=== PATIENT | male | born 1945 | race Caucasian/White ===

== ENCOUNTER 2020-10-13 08:33 | Outpatient (CLI) | payer MEDICARE, SELFPAY ==
[2020-10-13 09:47] LABS: Cholesterol 126 mg/dL (0-200); HDL Direct 53 mg/dL; Triglycerides 139 mg/dL (<150)
[2020-10-13 09:58] LABS: LDL Cholesterol Direct 51 mg/dL
== END 2020-10-13 08:34 | disposition home or self-care (01) ==
PROVIDERS: PCP Family Medicine; Visit Provider Internal Medicine Cardiovascular Disease
DX: E78.5 Hyperlipidemia, unspecified (principal)
CPT/HCPCS: 36415; 80061

== ENCOUNTER → 2021-03-13 08:10 | Outpatient (CLI) | payer MEDICARE, SELFPAY ==
--- NOTE | ~2021-03-13 | CT_ITS ---
EXAMINATION: CT abdomen pelvis w con INDICATION: Abdominal distention TECHNIQUE: Computed tomographic images of the abdomen and pelvis were obtained after the administrati on of 100 cc of Omnipaque 350 intravenous contrast. The dose-length product (DLP) was 979.37 mGy-cm. Automated exposure control and iterative reconstruction technique were employed. COMPARISON: None available FINDINGS: There is 11 mm nodule of the right middle lobe on image 6. There is a 5 mm nodule of the le ft lower lobe. There appears to be a lymph node in the major fissure on the right. Calcified coronary artery atherosclerosis is noted. The heart size is normal. The spleen, pancreas, gallbladder, and ad renal glands are normal. The kidneys are unremarkable. There is calcified atherosclerosis of the aort a and many of the other arteries. No pathologically enlarged abdominal or pelvic lymph nodes are iden tified. There is no free intraperitoneal gas or evidence of bowel obstruction. The prostate is enlarg ed. There is severe lumbar spondylosis. A fat-containing umbilical hernia is noted. Colonic diverticu losis is present without evidence of diverticulitis. IMPRESSION: 1. No CT correlate for the patient's symptoms. 2. Nodules of the visualized lung bases measuring up to 11 mm which may be benign or malignant. Dedic ated CT of the chest is recommended. Reviewed, dictated and finalized at location A. IMPRESSION: 1. No CT correlate for the patient's symptoms. 2. Nodules of the visualized lung bases measuring up to 11 mm which may be dipika gn or malignant. Dedicated CT of the chest is recommended.
[2021-03-13 08:30] LABS: Estimated Glomerular Filt Rate > 60
== END ==
PROVIDERS: PCP Family Medicine; Visit Provider Family Medicine
DX: K31.89 Other diseases of stomach and duodenum (principal)
CPT/HCPCS: 74177; Q9967

== ENCOUNTER → 2021-03-28 14:42 | Outpatient (CLI) | payer MEDICARE, SELFPAY ==
--- NOTE | ~2021-03-28 | CT_ITS ---
EXAMINATION: CT diagnostic chest wo con DATE: 03/28/2021 15:08 INDICATION: Lung nodules TECHNIQUE: Computed tomography (CT) of the chest was performed without intravenous contrast. The dose -length product (DLP) was 562.32 mGy-cm. Automated exposure control and iterative reconstruction tech [employer] were employed. COMPARISON: 03/13/2021 FINDINGS: There is a stable 11 mm nodule in the right middle lobe on image 65. A stable 5 mm nodule i s present in the left lower lobe on image 84. A fissural lymph node is seen in the right major fissur e on image 61. The lungs are free of acute opacities. There is no pleural effusion or pneumothorax. M ild bronchiectasis is noted in the lower lobes. No pathologically enlarged thoracic lymph nodes are i dentified. The heart size is normal. There is calcified coronary artery atherosclerosis. There are br idging osteophytes at multiple levels in the spine, consistent with diffuse idiopathic skeletal hyper ostosis (DISH). IMPRESSION: 1. Stable pulmonary nodules as described above. In the absence of known malignancy, these could refle ct infection/inflammation. Follow-up CT in 3-6 months is recommended. Reviewed, dictated and finalized at location A. IMPRESSION: 1. Stable pulmonary nodules as described above. In the absence of known maligna ncy, these could reflect infection/inflammation. Follow-up CT in 3-6 months is recommended.
== END ==
PROVIDERS: PCP Family Medicine; Visit Provider Family Medicine
DX: R93.89 Abnormal findings on diagnostic imaging of other specified body structures (principal); R91.8 Other nonspecific abnormal finding of lung field
CPT/HCPCS: 71250

== ENCOUNTER 2021-09-13 08:30 | Outpatient (CLI) | payer MEDICARE, SELFPAY ==
--- NOTE | ~2021-09-13 | NM_ITS ---
EXAMINATION: NM parathyroid w imaging DATE: 09/13/2021 14:42 INDICATION: Vitamin D deficiency. TECHNIQUE: 19.2 mCi Tc99m sestamibi was administered intravenously. Anterior images of the neck were obtained immediately and at 2 hours. SPECT images of the neck were obtained. COMPARISON: Chest CT 03/28/2021 FINDINGS: There is focal increased activity in the superior mediastinum at the midline on the early i mages that does not persist. There is mildly increased activity in the area of inferior right thyroid lobe on delayed images. IMPRESSION: 1. Focal increased activity in the superior mediastinum at the midline on early images correlating wi th a 6 mm mass abutting the left brachiocephalic vein by CT. This finding is indeterminate for a para thyroid adenoma. 2. Mildly increased activity in the area of the inferior right thyroid lobe on delayed images, which is indeterminate for a parathyroid adenoma. Reviewed, dictated and finalized at location A. IMPRESSION: 1. Focal increased activity in the superior mediastinum at the midline on early images correlating with a 6 mm mass abutting the left brachiocephalic vein by CT. This finding is indeterminate for a parathyroid adenoma. 2. Mildly increased activity in the area of the inferior right thyroid lobe on delayed images, which is indeterminate for a parathyroid adenoma.
== END 2021-09-13 08:31 | disposition home or self-care (01) ==
PROVIDERS: PCP Family Medicine; Visit Provider Family Medicine
DX: E55.9 Vitamin D deficiency, unspecified (principal); R93.89 Abnormal findings on diagnostic imaging of other specified body structures
CPT/HCPCS: 78070; A9500

== ENCOUNTER → 2021-10-17 12:16 | Outpatient (CLI) | payer MEDICARE, SELFPAY ==
--- NOTE | ~2021-10-17 | DEXA_ITS ---
Bone Density Report Name: MELVI ALFRED Age: 76 Sex: Male Ethnicity: White Date of : 1945 Indication: hyperparathyroidism; height loss; Referring Provider: JAREK, SUNIL Study: Bone densitometry was performed. Exam Date: October 17, 2021 Accession number: [id number] Bone Density: Region BMD T-score Z-score Classification AP Spine (L1-L4) 1.320 2.1 3.1 Normal Femoral Neck (Left) 0.851 -0.6 0.8 Normal Total Hip (Left) 1.105 0.5 1.3 Normal Femoral Neck (Right) 0.848 -0.6 0.7 Normal Total Hip (Right) 1.051 0.1 0.9 Normal Total Hip Mean 1.078 0.3 1.1 Normal World Health Organization criteria for BMD impression classify patients as: Normal (T-score at or above -1.0), Osteopenia (T-score between -1.0 and -2.5), or Osteoporosis (T-score at or below -2.5). 10-year Fracture Risk: FRAX not reported because: All T-scores for Spine Total, Hip Total, Femoral Neck at or above -1.0 Clinical Information Provided by Patient: Has used the following medications: Vitamin D Has the following medical conditions: Hyperparathyroidism Patient maximum height was 68 Drinks caffeinated beverages Impression: The patient has normal bone mass. Discussion: BONE DENSITY IS ABOVE THE MINIMUM DESIRABLE LEVEL AT ALL SKELETAL SITES TESTED. This patient?s bone mineral density is above the minimum desirable level (T-score -1.0 or better) at all sites measured. The patient should follow a healthful lifestyle (good nutrition with adequate calcium and vitamin D, and appropriate weight-bearing exercise). Follow-Up: Consider repeating this study in 5 years or sooner if there is some new clinical indication. Reported by: LINN on 10/17/2021 1:12:00 PM. Reviewed, dictated and finalized at location ABerry BOTELLO
== END ==
PROVIDERS: PCP Family Medicine; Visit Provider Family Medicine
DX: E21.3 Hyperparathyroidism, unspecified (principal)
CPT/HCPCS: 77080

== ENCOUNTER 2022-12-26 15:13 | Inpatient (IN) | payer MEDICARE, SELFPAY ==
[2022-12-26] VITALS (20 sets, daily range): BP systolic 151–178; BP diastolic 69–87; PULSE 37–64; RESP 13–18; TEMP 36–36.4; O2SAT 92–100; BMI 31.0
--- NOTE | ~2022-12-26 | XR_ITS ---
EXAMINATION: XR chest 1V portable DATE: 12/26/2022 15:36 INDICATION: Asymptomatic complete AV block TECHNIQUE: frontal view of the chest was obtained. COMPARISON: Chest CT dated 03/28/2021 FINDINGS: Patient is rotated slightly towards the left. The lungs remain clear with no focal airspace opacities , pulmonary edema, pleural effusion or pneumothorax. The cardiomediastinal silhouette is normal. Visu alized bones and soft tissues are unremarkable. IMPRESSION: 1. No acute cardiopulmonary disease. Reviewed, dictated and finalized at location A.
--- NOTE | ~2022-12-26 | XR_ITS ---
EXAMINATION: XR chest 2V DATE: 12/30/2022 09:54 INDICATION: Pacemaker insertion TECHNIQUE: AP and lateral views of the chest are obtained. COMPARISON: 12/29/2022 FINDINGS: The lungs are free of acute opacities. No pleural effusion or pneumothorax. The cardiomedia stinal silhouette is normal. There are bridging osteophytes at multiple levels in the spine, consiste nt with diffuse idiopathic skeletal hyperostosis (DISH). A dual-lead cardiac pacemaker of the right c hest wall ends with leads in expected locations. IMPRESSION: 1. No acute cardiopulmonary abnormality. Reviewed, dictated and finalized at location A.
--- NOTE | ~2022-12-26 | XR_ITS ---
EXAMINATION: XR chest 1V portable DATE: 12/29/2022 12:26 INDICATION: Pacer placement. TECHNIQUE: A single frontal view of the chest was obtained. COMPARISON: Chest single view 12/26/22, chest CT 03/28/2021 FINDINGS: There is mild atelectasis versus scarring in left lower lung zone. No pleural effusion or p neumothorax. The heart size is normal. There is a right chest wall pacer with leads in the right atri um and right ventricle. IMPRESSION: 1. Mild atelectasis versus scarring in left lower lung zone. Reviewed, dictated and finalized at location A.
--- NOTE | 2022-12-26 15:15 | ECG_ITS ---
Measurements Intervals [place] Rate: 58 P: [place]: 0 QRS: -43 QRSD: 158 T: 11 QT: 431 QTc: 426 Interpretive Statements SINUS RHYTHM WITH SECOND-DEGREE AV BLOCK MOBITZ TYPE 1 LEFT AXIS DEVIATION [QRS AXIS < -30] RIGHT BUNDLE BRANCH BLOCK [120+ ms QRS DURATION, UPRIGHT V1, 40+ ms S IN I/aVL/V4/V5/V6] ABNORMAL ECG NO PREVIOUS ECG AVAILABLE FOR COMPARISON Electronically Signed On 12-26-2022 17:23:43 CDT by Hari Oro M.D.
--- NOTE | 2022-12-26 15:25 | ED.RECABL ---
HPI - Recheck/Abnormal Lab/Rx General Chief Complaint: Recheck/Abnormal Lab/Rx Stated Complaint: heart block Time Seen by Provider: 12/26/22 15:24 Source: patient Mode of arrival: ambulatory Limitations: no limitations History of Present Illness HPI narrative: Patient 77 years old white male went to Dr. Broderick today for routine checkup. Was found to have complete heart block on his EKG. Patient is asymptomatic. He denies any shortness of breath, chest pain, lightheadedness, headache, back pain or abdominal pain, fever or chills nausea or vomiting. Patient is not on beta-kita or calcium channel kita. History of sick sinus syndrome, patient was referred to our emergency room for blood work-up and admission for possible pacemaker placement. Currently patient feeling anxious and worried Related Data Allergies Allergy/AdvReac Type Severity Reaction Status Date / Time No Known Allergies Allergy Verified 12/26/22 17:02 Review of Systems Review of Systems: All systems reviewed & are unremarkable except as noted in HPI and below Exam Narrative: General appearance: Well-developed, well-nourished Skin: Normal color Head: Normocephalic, nontraumatic Eyes: Clear conjunctiva ENT: Oropharynx normal, ears normal, nose normal Neck: Supple, nontender Chest and respiratory: Airway patent, no respiratory distress, no accessory muscle use Heart: Irregular heart rate Abdomen: Soft, nontender, no organomegaly, quiet bowel sounds Vascular: Normal peripheral pulses, normal capillary refill. Musculoskeletal: Normal range of motion, nontender back Neurologic: Alert and oriented ?3, [employer] is normal as tested, no gross motor deficit Course Reevaluation(s) Reevaluation #1: Patient is still asymptomatic, feeling much better after Ativan IV less anxious. Date: 12/26/22 Time: 17:33 Consultations Consultation #1: Dr. Broderick Admit to hospitalist Date: 12/26/22 Time: 14:10 Vital Signs Vital signs: Vital Signs Temperature 36.4 C L 12/26/22 15:19 Pulse Rate 64 12/26/22 15:19 Respiratory Rate 15 12/26/22 15:19 Blood Pressure 178/86 H 12/26/22 15:19 Pulse Oximetry 100 12/26/22 15:19 Oxygen Delivery Room Air 12/26/22 15:19 Temperature 36.4 C L 12/26/22 15:19 Pulse Rate 64 12/26/22 15:19 Respiratory Rate 15 12/26/22 15:19 Blood Pressure 178/86 H 12/26/22 15:19 Pulse Oximetry 100 12/26/22 15:19 Oxygen Delivery Room Air 12/26/22 15:19 MDM - Recheck/Abnormal Lab/Rx MDM Narrative Medical decision making narrative: Patient referred to the emergency room with by Dr. Fuchs office with complete heart block. Patient was asymptomatic. Patient is not on beta-kita or calcium channel kita medications Work-up today showed no significant abnormality to explain patient condition. EKG on arrival showed complete heart block, ventricular rate 58/min, left axis deviation, right bundle branch block, abnormal EKG chest x-ray on arrival showed no acute abnormalities. Patient was very anxious and concerned about the abnormal finding in his EKG, 1 mg Ativan IV was given with remarkable improvement. Patient to be admitted to hospitalist, IMU for pacemaker placement. Differential Diagnosis Differential diagnosis: Likely other (Complete heart block, ischemic cardiac disease, electrolyte imbalance, medication induced) Medical Records Attestation: I reviewed the patient's medical records. Lab Data Attestation: I reviewed the patient's lab results. 12/26/22 15:21 12/26/22 15:21 Labs: Lab Results 12/26/22 Range/Units 15:21 WBC 10.0 (4.5-10.0) K/mm3 RBC 5.24 (4.6-6.20) M/mm3 Hgb 16.3 (14.0-1
[2022-12-26 15:29] LABS: Basophils Absolute Auto 0.1 K/mm3 (0.0-0.1); Basophils Percent Auto 1.2 % (0.2-1.2); Eosinophils Absolute Auto 0.4 K/mm3 (0-0.3); Eosinophils Percent Auto 3.5 % (0-4.4); Hematocrit 47.3 % (42.0-52.0); Hemoglobin 16.3 g/dL (14.0-18.0); Immature Granulocyte Absolute 0.03 K/mm3 (0.00-0.031); Immature Granulocyte Percent A 0.3 % (0-0.5); Lymphocytes Absolute Auto 2.89 K/mm3 (0.9-3.2); Mean Corpuscular HGB Conc 34.5 g/dl (32-36); Mean Corpuscular Hemoglobin 31.1 pg (26-34); Mean Corpuscular Volume 90.3 fl (80-100); Mean Platelet Volume 9.8 fl (7.4-10.4); Monocytes Absolute Auto 1.2 K/mm3 (0.1-0.6); Monocytes Percent Auto 11.5 % (2.6-8.5); Neutrophils Absolute Auto 5.4 K/mm3 (1.3-6.7); Neutrophils Percent Auto 54.5 % (45.5-73.1); Platelet Count Result 276 k/mm3 (150-375); Red Blood Count 5.24 M/mm3 (4.6-6.20); Red Cell Distribution Width 13.5 % (11.5-14.5)
[2022-12-26] MEDS: Please add drug allergy info to patient profile. 1 EACH XX (15:34)
[2022-12-26] MEDS: ASPIRIN 81 MG CHEWABLE TABLET 324 MG PO (15:35)
[2022-12-26 15:40] LABS: Alanine Aminotransferase 104 U/L (6-50); Albumin Level 4.8 g/dL (3.5-5.1); Alkaline Phosphatase 47 U/L (38-126); Anion Gap 9 mmol/L (8-16); Aspartate Amino Transferase 62 U/L (17-59); Bilirubin,Total 0.4 mg/dL (0.2-1.3); Blood Urea Nitrogen 17 mg/dL (9-20); Calcium 10.7 mg/dL (8.4-10.2); Carbon Dioxide 27 mmol/L (22-30); Chloride 108 mmol/L (98-107); Estimated CRCL calculation 69 ml/min; Estimated Glomerular Filt Rate > 60; Glucose 123 mg/dL (65-110); Lipase 182 U/L (23-300); Potassium 3.6 mmol/L (3.4-5.0); Sodium 144 mmol/L (137-145)
[2022-12-26 15:52] LABS: Prothrombin Time 13.3 Seconds (11.1-14.7); Troponin I < 0.012 ng/mL (0.000-0.034)
[2022-12-26 15:53] LABS: Partial Thromboplastin Time 26.1 SECONDS (22.3-36.8)
[2022-12-26 16:36] LABS: NT Pro B Type Natriuretic Pept 101 pg/mL (19.9-100)
--- NOTE | 2022-12-26 16:50 | ECG_ITS ---
Measurements Intervals [place] Rate: 48 P: [place]: 0 QRS: -34 QRSD: 153 T: 9 QT: 473 QTc: 427 Interpretive Statements SINUS RHYTHM WITH COMPLETE HEART BLOCK JUNCTIONAL ESCAPE RHYTHM LEFT AXIS DEVIATION [QRS AXIS < -30] RIGHT BUNDLE BRANCH BLOCK [120+ ms QRS DURATION, UPRIGHT V1, 40+ ms S IN I/aVL/V4/V5/V6] ABNORMAL ECG COMPARED TO ECG 12/26/2022 15:21:39 COMPLETE HEART BLOCK IS NOW DEMONSTRATED Electronically Signed On 12-26-2022 17:26:28 CDT by Hari Oro M.D.
--- NOTE | 2022-12-26 17:03 | PC.NURSE ---
patient is requesting his IV be removed at this time for comfort issues. This nurse explained that IV can be removed but another IV will likely have to be started d/t probable admission to hospital. Patient is agreeable at this time.
--- NOTE | 2022-12-26 18:06 | PM.IMHP ---
H&P: HPI History of Present Illness Date/Time: 12/26/22 18:06 Meds Home Medications and Allergies Allergies Allergy/AdvReac Type Severity Reaction Status Date / Time No Known Allergies Allergy Verified 12/26/22 17:02 Vital Signs Vital Signs - 24 hr 12/26/22 15:19 12/26/22 15:22 12/26/22 15:30 Temperature 36.4 C L Pulse Rate 64 62 Respiratory Rate 15 15 Blood Pressure 178/86 H Pulse Oximetry 100 100 99 Oxygen Delivery Room Air 12/26/22 15:31 12/26/22 15:45 12/26/22 15:46 Temperature Pulse Rate 52 L 51 L Respiratory Rate 16 15 Blood Pressure 171/77 H 162/69 H Pulse Oximetry 99 99 99 Oxygen Delivery 12/26/22 16:09 12/26/22 16:15 12/26/22 16:38 Temperature Pulse Rate 46 L 43 L 45 L Respiratory Rate 14 13 14 Blood Pressure Pulse Oximetry 100 98 97 Oxygen Delivery 12/26/22 16:50 12/26/22 17:00 12/26/22 17:15 Temperature Pulse Rate 48 L 46 L 47 L Respiratory Rate 18 Blood Pressure Pulse Oximetry 98 100 100 Oxygen Delivery 12/26/22 17:16 12/26/22 17:30 12/26/22 17:45 Temperature Pulse Rate 46 L 45 L 44 L Respiratory Rate Blood Pressure 151/75 H Pulse Oximetry 100 99 100 Oxygen Delivery H&P: Results Labs Labs: Short CBC 12/26/22 Range/Units 15:21 WBC 10.0 (4.5-10.0) K/mm3 Hgb 16.3 (14.0-18.0) g/dL Hct 47.3 (42.0-52.0) % Plt Count 276 (150-375) k/mm3 BMP 12/26/22 15:21 Sodium 144 Potassium 3.6 Chloride 108 H Carbon Dioxide 27 BUN 17 Creatinine 0.90 Glucose 123 H Calcium 10.7 H Cardiac Enzymes 12/26/22 Range/Units 15:21 Troponin I < 0.012 (0.000-0.034) ng/mL Liver Function 12/26/22 Range/Units 15:21 Total Bilirubin 0.4 (0.2-1.3) mg/dL AST 62 H (17-59) U/L ALT 104 H (6-50) U/L Alkaline Phosphatase 47 (38-126) U/L Albumin 4.8 (3.5-5.1) g/dL
--- NOTE | 2022-12-26 18:30 | ADMGEN ---
This patient, Gaston Pat, was admitted to IMU Room 200-01 on 12/26/22 at 1820. Patient/family oriented to hospital policies and general routines including ID bracelet, bed and alarms, visiting hours, pain management, procedures, bathroom and other care routines, personal items, smoking policy, room service/diet, and visiting hours. Information on how to activate the Rapid Response Team has been discussed. Patient/Family are encouraged to report perceived risks to care and to ask questions if they do not understand what they are told or what they should do.
[2022-12-26 19:27] LABS: Troponin I < 0.012 ng/mL (0.000-0.034)
[2022-12-26] MEDS: AMOXICILLIN 500 MG CAPSULE PO (20:30)
[2022-12-26 21:39] LABS: Troponin I < 0.012 ng/mL (0.000-0.034)
--- NOTE | 2022-12-26 23:45 | PM.IMHP ---
H&P: HPI History of Present Illness Date/Time: 12/26/22 23:45 Chief Complaint: Abnormal EKG Narrative: This is a 77-year-old male patient who went into Dr. Broderick office for routine checkup. The patient was found to have a complete heart block on the EKG. The patient is asymptomatic. The patient denies any chest pain or any fever chills. The patient is not on a beta-kita calcium channel kita. The patient had as a history of sick sinus syndrome and was referred to our emergency room for blood workup and admission for possible pacemaker placement. The is at the bedside the patient is anxious and worried. The patient has brought a whole bag of medications including all of his supplemental medications. The patient stated that he takes holistic medication from his chiropractor and that Cardiology is aware of his medications. The patient stated he is going to continue to take all of his medication as prescribed per his chiropractor. His blood pressure is 121/53 and a pulse rate of 43. The patient is asymptomatic he is awake and talking without difficulty. EKG was read as the followingSINUS RHYTHM WITH COMPLETE HEART BLOCK JUNCTIONAL ESCAPE RHYTHM LEFT AXIS DEVIATION? [QRS AXIS < -30] RIGHT BUNDLE BRANCH BLOCK? [120+ ms QRS DURATION, UPRIGHT V1, 40+ ms S IN I/aVL/V4/V5/V6] ABNORMAL ECG COMPARED TO ECG 12/26/2022 15:21:39 COMPLETE HEART BLOCK IS NOW DEMONSTRATED Electronically Signed On 12-26-2022 17:26:28 CDT by Hari Oro M.D. The patient was given an aspirin and Ativan in the emergency room. Troponins are negative x3. Blood sugars 123 and calcium is 10.7. The patient is being admitted to inpatient status on the date of service of 12/26/2022 Review of Systems Review of Systems: All systems reviewed & are unremarkable except as noted in HPI and below Constitutional: Constitutional: Reports as per HPI and Reports no additional constitutional complaints Eyes: Eyes: Reports as per HPI and Reports no additional eye complaints ENT: Reports system reviewed and no additional complaints, except as documented and Reports Normal hearing present Cardiovascular: Cardiovascular: Reports no additional cardiovascular complaints Respiratory: Respiratory: Reports no additional respiratory complaints and Reports no additional respiratory complaints Gastrointestinal: Gastrointestinal: Reports as per HPI and Reports no additional gastrointestinal complaints Musculoskeletal: Musculoskeletal: Reports no additional musculoskeletal complaints Integumentary/Breasts: Skin/Breast: Reports system reviewed and no additional complaints, except as docu and Reports as per HPI Neurologic: Reports system reviewed and no additional complaints, except as documented, Reports as per HPI and Reports Normal hearing present Psychiatric: Psychiatric: Reports no additional psychiatric complaints and Reports as per HPI Endocrine: Endocrine: Reports no additional endocrine complaints Hematologic/Lymphatic: Hematologic/Lymphatic: Reports no additional hematologic/lymphatic complaints Allergic/Immunologic: Allergic/Immunologic: Reports no additional allergic/immunologic complaints [facility] Past Medical History Medical History (Updated 12/27/22 @ 02:05 by Rosetta Eastman NP) BPH (benign prostatic hyperplasia) CAD (coronary artery disease) Hyperlipidemia Hypertension Macular degeneration Surgical History Surgical History (Updated 12/27/22 @ 01:55 by Rosetta Eastman NP) History of cardiac catheterization History of colonoscopy History of tonsillectomy and adenoidectomy Family History Family History Father DVT (deep venous thrombosis) Mother CKD (chronic kidney disease) Cerebrovascular accident Lung cancer Sibling Acute myocardial infarction Social History Social History (Updated 12/27/22 @ 01:57 by Rosetta Eastman NP) Social History: The patient is and lives with
[2022-12-27] VITALS (17 sets, daily range): BP systolic 121–158; BP diastolic 53–79; PULSE 34–68; RESP 16–24; TEMP 36.1–36.7; O2SAT 92–99
[2022-12-27 04:19] LABS: Basophils Absolute Auto 0.1 K/mm3 (0.0-0.1); Basophils Percent Auto 0.9 % (0.2-1.2); Eosinophils Absolute Auto 0.4 K/mm3 (0-0.3); Eosinophils Percent Auto 4.8 % (0-4.4); Hematocrit 43.9 % (42.0-52.0); Hemoglobin 14.6 g/dL (14.0-18.0); Immature Granulocyte Absolute 0.02 K/mm3 (0.00-0.031); Immature Granulocyte Percent A 0.3 % (0-0.5); Lymphocytes Absolute Auto 1.69 K/mm3 (0.9-3.2); Lymphocytes Percent Auto 21.6 % (18.3-44.2); Mean Corpuscular HGB Conc 33.3 g/dl (32-36); Mean Corpuscular Hemoglobin 30.2 pg (26-34); Mean Corpuscular Volume 90.7 fl (80-100); Mean Platelet Volume 10.4 fl (7.4-10.4); Monocytes Absolute Auto 0.9 K/mm3 (0.1-0.6); Monocytes Percent Auto 11.1 % (2.6-8.5); Neutrophils Absolute Auto 4.8 K/mm3 (1.3-6.7); Neutrophils Percent Auto 61.3 % (45.5-73.1); Platelet Count Result 237 k/mm3 (150-375); Red Blood Count 4.84 M/mm3 (4.6-6.20); Red Cell Distribution Width 13.2 % (11.5-14.5); White Blood Count 7.8 K/mm3 (4.5-10.0)
[2022-12-27 04:28] LABS: Alanine Aminotransferase 81 U/L (6-50); Albumin Level 3.9 g/dL (3.5-5.1); Alkaline Phosphatase 44 U/L (38-126); Anion Gap 8 mmol/L (8-16); Aspartate Amino Transferase 50 U/L (17-59); Bilirubin,Total 0.4 mg/dL (0.2-1.3); Blood Urea Nitrogen 16 mg/dL (9-20); Calcium 9.8 mg/dL (8.4-10.2); Carbon Dioxide 23 mmol/L (22-30); Chloride 112 mmol/L (98-107); Estimated CRCL calculation 76 ml/min; Estimated Glomerular Filt Rate > 60; Glucose 115 mg/dL (65-110); Magnesium 2.1 mg/dL (1.6-2.3); Potassium 3.4 mmol/L (3.4-5.0); Sodium 143 mmol/L (137-145)
--- NOTE | 2022-12-27 05:20 | PHAR ---
VERIFIED ALL HOME SUPPLEMENTS. BERBERINE- EMPTY. BOTTLE SENT BACK UP. 11 SUPPLEMENTS IN TOTAL.
[2022-12-27] MEDS: AMOXICILLIN 500 MG CAPSULE PO ×3 (06:13→21:04)
[2022-12-27 06:18] LABS: Free T4 Free Thyroxine Reflex 0.93 ng/dL (0.78-2.19)
[2022-12-27 07:57] LABS: Total Triiodothyronine (T3) 1.33 NG/ML (0.97-1.69)
[2022-12-27] MEDS: ASPIRIN 81 MG ENTERIC TABLET PO (09:04)
--- NOTE | 2022-12-27 09:21 | ECHO_ITS ---
Patient Info Name: Gaston Pat Age: 77 years : 1945 Gender: Male Ht: 68 in Wt: 199 lbs BSA: 2.11 m2 HR: 62 bpm Heart Rhythm: Bradycardia Technical Quality: Fair Exam Date: 12/27/2022 12:37 PM Exam Location: [facility] Pulmonary Exam Room: [facility] Patient Status: Inpatient Admit Date: 12/26/2022 Staff Ordering Physician: Madhu Broderick MD Accounts Receivable Collector: Esther Hoyt RDCS Attending Provider: Arie Chatterjee MD Referring Physician: Davie MONROE; Exam Type: CA echo dop color flow w con Study Info Indications - hx/o sss complete heart block Complete two-dimensional, color flow and Doppler transthoracic echocardiogram is performed with contrast to opacify the left ventricle and to improve the deliniation of the left ventricle endocardial borders. Contrast/Agitated Saline Contrast/Ag. Saline: Definity Amount: 2.00 ml Administered By: Esther Hoyt [facility] Existing IV Access: Yes IV Access Condition: patent with no signs of infiltration Summary 1. Left ventricular chamber dimension is normal. 2. Left ventricular systolic function is normal, estimated at 65-70%. 3. There is mildly increased left ventricular wall thickness. 4. The left ventricular diastolic function is grade I diastolic dysfunction. 5. There is mild mitral valve regurgitation. 6. There is mild tricuspid valve regurgitation. 7. Mild pulmonary hypertension, estimated pulmonary arterial systolic pressure is 38 mmHg. 8. There is no aortic valve stenosis. 9. There is no aortic valve regurgitation. 10. Patient appears to be in complete heart block during the study. Left Ventricle Left ventricular chamber dimension is normal. Left ventricular systolic function is normal, estimated at 65-70%. There is mildly increased left ventricular wall thickness. The left ventricular diastolic function is grade I diastolic dysfunction. Right Ventricle Right ventricular chamber dimension is normal. Right ventricular systolic function is normal. Left Atria Left atrial chamber dimension is mildly enlarged. Right Atria Right atrial chamber dimension is mildly enlarged. Atrial Septum Atrial septal aneurysmal motion. Aortic Valve The aortic valve is probable trileaflet. There is no aortic valve stenosis. There is no aortic valve regurgitation. There is mild aortic valve calcification. Pulmonic Valve The pulmonic valve is not well visualized. There is mild pulmonic regurgitation. Mitral Valve The mitral valve has normal leaflets. There is mild mitral valve regurgitation. The mitral valve annulus is mildly calcified. Tricuspid Valve The tricuspid valve leaflets are normal. There is mild tricuspid valve regurgitation. Mild pulmonary hypertension, estimated pulmonary arterial systolic pressure is 38 mmHg. Pericardium/Pleural The pericardium appears epicardial fat pad. There is no pericardial effusion. Inferior Vena Cava Normal inferior vena cava with >50% collapse upon inspiration consistent with normal right atrial pressure, 5 mmHg. Aorta The aortic root size at the sinus of Valsalva is normal. There is mild aortic atherosclerosis. Left Ventricular Outflow Tract Name Value Normal LVOT 2D LVOT Diameter 2.09 cm LVOT Doppler
--- NOTE | 2022-12-27 09:22 | ECG_ITS ---
Measurements Intervals [place] Rate: 46 P: 25 [place]: 261 QRS: -34 QRSD: 148 T: 2 QT: 471 QTc: 412 Interpretive Statements SINUS RHYTHM WITH COMPLETE HEART BLOCK JUNCTIONAL ESCAPE RHYTHM LEFT AXIS DEVIATION RIGHT BUNDLE BRANCH BLOCK ABNORMAL ECG COMPARED TO ECG 12/26/2022 16:57:18 NO SIGNIFICANT CHANGES Electronically Signed On 12-27-2022 10:36:10 CDT by Patrick Lund D.O.
--- NOTE | 2022-12-27 09:43 | PM.CNCAR ---
Assessment and Plan Assessment and plan (1) CHB (complete heart block): Code(s): I44.2 - Atrioventricular block, complete Status: Acute Assessment and Plan: Patient has had progressive sinus node dysfunction now culminating in complete heart block although he is hemodynamically stable. He has a junctional escape rhythm thus far. Had transient episode what appeared to be an accelerated idioventricular rhythm overnight. He will require permanent dual chamber pacemaker implantation as scheduled Thursday. We discussed pros and cons chest occasion this regard to which he verbalized understanding. All questions answered to his satisfaction. I explained the importance of repeat 2D echocardiogram to establish LV function. Discussed if significant LV dysfunction as identified this will complicate management, however, given complete heart block he must proceed with pacemaker implantation but would need to discuss with Dr. Oro if EF less than 35%. Further recommendation follows appropriate after review of echocardiogram which is pending at this time. I discussed this all at length with the patient who verbalized understanding. All questions answered to his satisfaction. Clinically he is not decompensated heart failure nor has it or symptoms suggestive of further activity limitation. Therefore while I do not feel this is likely we discussed potential complications this regard particular as he is not a candidate for noninvasive ischemic evaluation given his underlying contraindication due to complete heart block. Nonetheless even if EF is preserved as it has been previously invasive angiography is strongly advised and will be pursued as an outpatient within the next month or sooner if necessary. We discussed potential risks and benefits with pacemaker implantation and restrictions with regard to driving, motion post pacemaker implantation. All questions answered to his satisfaction. I spent a great deal of time going through the concerning life-threatening complications may occur not only with complete heart block which will be stabilized with pacemaker implantation but potential implications with regards to his coronary status and the need for further evaluation which very likely will lead to CABG and it is significant risks including but not limited to stroke, renal failure, anemia, heart failure. Avoid any and all AV faustino blocking agents. Patient will be made NPO after midnight Thursday night for pacemaker implantation Thursday. We discussed potential need for temporary transvenous pacemaker implantation in the interval should he develop symptomatic bradycardia and or ventricular escape rhythm with complete heart block resulting in hemodynamic instability. At this time this is not necessary but will need to continue to monitor closely as this remains a potential risk. Continue telemetry. He cannot be discharged until pacemaker implantation is complete even if intermittent sinus rhythm was observed on telemetry. (2) CAD (coronary artery disease): Qualifiers: Coronary Disease-Associated Artery/Lesion type: [place] artery [place] vs. transplanted heart: [place] heart Associated angina: without angina Qualified Code(s): I25.10 - Atherosclerotic heart disease of [place] coronary artery without angina pectoris Code(s): I25.10 - Atherosclerotic heart disease of [place] coronary artery without angina pectoris Status: Acute Assessment and Plan: He has multivessel CAD longstanding for many years for which medical management has been desired and pursued. Patient has done exceptionally well in this regard without anginal symptoms with the previous determined preference to avoid CABG for as long as possible. Patient still is not reporting any symptoms suggestive of angina or worsening obstructive CAD, however, I have previously and once again I counseled that I feel that it is more likely he has had significant pro
[2022-12-27] MEDS: PERFLUTREN LIPID MICROSPHERES 1.5 ML VIAL DILUTED TO 10 ML TOTAL VOLUME IV PUSH (13:05)
--- NOTE | 2022-12-27 14:07 | PM.IMPN ---
Progress Note: A&P Assessment and Plan (1) CHB (complete heart block): Code(s): I44.2 - Atrioventricular block, complete Status: Acute Assessment and Plan: The patient takes a large multitude of supplemental medications from his chiropractor. I was asked to continue with his home medications. Patient stated that he was going to take the regardless if I would order to continue or not.Patient's heart rate is in the 40s to 80s. He is asymptomatic at this time. Diagnosis complete heart block. Plan for pacemaker implantation on Thursday currently asymptomatic (2) Hypertension: Qualifiers: Hypertension type: primary hypertension Qualified Code(s): I10 - Essential (primary) hypertension Code(s): I10 - Essential (primary) hypertension Status: Acute Assessment and Plan: Losartan and amlodipine (3) CAD (coronary artery disease): Qualifiers: Coronary Disease-Associated Artery/Lesion type: [place] artery [place] vs. transplanted heart: [place] heart Associated angina: without angina Qualified Code(s): I25.10 - Atherosclerotic heart disease of [place] coronary artery without angina pectoris Code(s): I25.10 - Atherosclerotic heart disease of [place] coronary artery without angina pectoris Status: Acute Assessment and Plan: The patient stated that he has had a cardiac catheterization in the past but had grown some collateral and did not need a stent at the time. The patient stated this is why he started to take all of the supplements. (4) Hyperlipidemia: Qualifiers: Hyperlipidemia type: mixed hyperlipidemia Qualified Code(s): E78.2 - Mixed hyperlipidemia Code(s): E78.5 - Hyperlipidemia, unspecified Status: Acute Assessment and Plan: The patient takes a Co Q10 at home. And is also on Zetia. Continue with Crestor (5) BPH (benign prostatic hyperplasia): Code(s): N40.0 - Benign prostatic hyperplasia without lower urinary tract symptoms Status: Acute Assessment and Plan: Continue with Proscar (6) Macular degeneration: Code(s): H35.30 - Unspecified macular degeneration Status: Acute Assessment and Plan: Continue with home eye drops. Subjective Date/time seen: 12/27/22 14:07 Interval history: History reviewed. Feels okay. No shortness of breath or chest pain. No new complaints Review of Systems Review of Systems: All systems reviewed & are unremarkable except as noted in HPI and below Exam Narrative: GENERAL: The patient is well developed, not in acute distress HEENT: Nonicteric sclerae, PERRLA, EOMI. Oropharynx clear. Moist mucous membranes. Conjunctivae appear well perfused. CHEST: Chest wall is nontender. HEART: Regular rate and rhythm without murmur, rubs, or gallops LUNGS: Clear to auscultation bilaterally. no respiratory distress ABDOMEN: Soft, positive bowel sounds, non-tender, no organomegaly. SKIN: No rash, no excessive bruising, petechiae, or purpura. NEUROLOGIC: Cranial nerves II-XII intact, alert and oriented x 3, no gross motor deficits EXTREMITIES: no edema, cyanosis or clubbing Objective Data Vital Signs Vital Signs: Vital Signs - 24 hr 12/26/22 15:19 12/26/22 15:22 12/26/22 15:30 Temperature 97.5 F L Pulse Rate 64 62 Respiratory Rate 15 15 Blood Pressure 178/86 H Pulse Oximetry 100 100 99 Oxygen Delivery Room Air 12/26/22 15:31 12/26/22 15:45 12/26/22 15:46 Temperature Pulse Rate 52 L 51 L Respiratory Rate 16 15 Blood Pressure 171/77 H 162/69 H Pulse Oximetry 99 99 99 Oxygen Delivery 12/26/22 16:09 12/26/22 16:15 12/26/22 16:38 Temperature Pulse Rate 46 L 43 L 45 L Respiratory Rate 14 13 14 Blood Pressure Pulse Oximetry 100 98 97 Oxygen Delivery 12/26/22 16:50 12/26/22 17:00 12/26/22 17:15 Temperature Pulse Rate 48 L 46 L 47 L Respiratory Rate 18 Blood Pressure Pulse Oximetry 98 100 100 Oxy
[2022-12-27] MEDS: EZETIMIBE 10 MG TABLET PO (15:45)
[2022-12-27] MEDS: FINASTERIDE 5 MG TABLET PO (21:03)
[2022-12-27] MEDS: LATANOPROST 0.005% OP SOLN 2.5 ML BTL 1 DROP EACH EYE (21:03)
[2022-12-27] MEDS: ROSUVASTATIN 10 MG TABLET 40 MG PO (21:04)
[2022-12-28] VITALS (14 sets, daily range): BP systolic 119–164; BP diastolic 63–77; PULSE 36–57; RESP 16–20; TEMP 36.1–36.6; O2SAT 95–100
[2022-12-28] MEDS: AMOXICILLIN 500 MG CAPSULE PO ×3 (05:31→20:04)
[2022-12-28] MEDS: ASPIRIN 81 MG ENTERIC TABLET PO (09:24)
[2022-12-28] MEDS: EZETIMIBE 10 MG TABLET PO (09:24)
[2022-12-28 10:10] LABS: Anion Gap 12 mmol/L (8-16); Blood Urea Nitrogen 18 mg/dL (9-20); Calcium 10.1 mg/dL (8.4-10.2); Carbon Dioxide 25 mmol/L (22-30); Chloride 104 mmol/L (98-107); Estimated CRCL calculation 61 ml/min; Estimated Glomerular Filt Rate > 60; Glucose 162 mg/dL (65-110); Potassium 3.6 mmol/L (3.4-5.0); Sodium 141 mmol/L (137-145)
--- NOTE | 2022-12-28 11:11 | PM.IMPN ---
Progress Note: A&P Assessment and Plan (1) CHB (complete heart block): Code(s): I44.2 - Atrioventricular block, complete Status: Acute Assessment and Plan: The patient takes a large multitude of supplemental medications from his chiropractor. I was asked to continue with his home medications. Patient stated that he was going to take the regardless if I would order to continue or not.Patient's heart rate is in the 40s to 80s. He is asymptomatic at this time. Diagnosis complete heart block. Plan for pacemaker implantation on Thursday currently asymptomatic (2) Hypertension: Qualifiers: Hypertension type: primary hypertension Qualified Code(s): I10 - Essential (primary) hypertension Code(s): I10 - Essential (primary) hypertension Status: Acute Assessment and Plan: Losartan and amlodipine (3) CAD (coronary artery disease): Qualifiers: Coronary Disease-Associated Artery/Lesion type: [place] artery [place] vs. transplanted heart: [place] heart Associated angina: without angina Qualified Code(s): I25.10 - Atherosclerotic heart disease of [place] coronary artery without angina pectoris Code(s): I25.10 - Atherosclerotic heart disease of [place] coronary artery without angina pectoris Status: Acute Assessment and Plan: The patient stated that he has had a cardiac catheterization in the past but had grown some collateral and did not need a stent at the time. The patient stated this is why he started to take all of the supplements. (4) Hyperlipidemia: Qualifiers: Hyperlipidemia type: mixed hyperlipidemia Qualified Code(s): E78.2 - Mixed hyperlipidemia Code(s): E78.5 - Hyperlipidemia, unspecified Status: Acute Assessment and Plan: The patient takes a Co Q10 at home. And is also on Zetia. Continue with Crestor (5) BPH (benign prostatic hyperplasia): Code(s): N40.0 - Benign prostatic hyperplasia without lower urinary tract symptoms Status: Acute Assessment and Plan: Continue with Proscar (6) Macular degeneration: Code(s): H35.30 - Unspecified macular degeneration Status: Acute Assessment and Plan: Continue with home eye drops. Subjective Date/time seen: 12/28/22 11:11 Interval history: No overnight events. Wants takes shower. Denies any chest pain or shortness of breath. Telemetry reviewed. Review of Systems Review of Systems: All systems reviewed & are unremarkable except as noted in HPI and below Exam Narrative: GENERAL: The patient is well developed, not in acute distress HEENT: Nonicteric sclerae, PERRLA, EOMI. Oropharynx clear. Moist mucous membranes. Conjunctivae appear well perfused. CHEST: Chest wall is nontender. HEART: Bradycardic without murmur, rubs, or gallops LUNGS: Clear to auscultation bilaterally. no respiratory distress ABDOMEN: Soft, positive bowel sounds, non-tender, no organomegaly. SKIN: No rash, no excessive bruising, petechiae, or purpura. NEUROLOGIC: Cranial nerves II-XII intact, alert and oriented x 3, no gross motor deficits EXTREMITIES: no edema, cyanosis or clubbing Objective Data Vital Signs Vital Signs: Vital Signs - 24 hr 12/27/22 12:00 12/27/22 12:00 12/27/22 12:00 Temperature 97.5 F L Pulse Rate 50 L 46 L Respiratory Rate 16 Blood Pressure 142/68 H Pulse Oximetry 99 Oxygen Delivery Room Air 12/27/22 14:00 12/27/22 16:00 12/27/22 16:00 Temperature 98.0 F Pulse Rate 41 L 48 L 51 L Respiratory Rate 24 H Blood Pressure 158/79 H Pulse Oximetry 98 Oxygen Delivery 12/27/22 16:00 12/27/22 18:00 12/27/22 20:09 Temperature 97.8 F Pulse Rate 59 L 51 L Respiratory Rate 20 Blood Pressure 147/65 H Pulse Oximetry 95 Oxygen Delivery Room Air 12/27/22 19:42 12/27/22 20:00 12/27/22 22:00 Temperature Pulse Rate 51 L 48 L 43 L Respiratory Rate 20 Blood Pressure Pulse Oximetry 95
--- NOTE | 2022-12-28 13:45 | PM.PNCARD ---
Progress Note: A&P Assessment and Plan (1) CHB (complete heart block): Code(s): I44.2 - Atrioventricular block, complete Status: Acute Assessment and Plan: Patient has had progressive sinus node dysfunction now culminating in complete heart block although he is hemodynamically stable. He has a junctional escape rhythm thus far. Had transient episode what appeared to be an accelerated idioventricular rhythm overnight. He will require permanent dual chamber pacemaker implantation as scheduled Thursday. We discussed pros and cons chest occasion this regard to which he verbalized understanding. All questions answered to his satisfaction. Patient is symptomatic feeling notably more fatigued when his heart rate is in the 40s as he reports. While he is not dramatically symptomatic he nonetheless is now clearly aware what contributed to have a feels after observing his symptoms and watching telemetry. 2D echocardiogram summary ? 1. Left ventricular chamber dimension is normal. ? 2. Left ventricular systolic function is normal, estimated at 65-70%. ? 3. There is mildly increased left ventricular wall thickness. ? 4. The left ventricular diastolic function is grade I diastolic dysfunction. ? 5. There is mild mitral valve regurgitation. ? 6. There is mild tricuspid valve regurgitation. ? 7. Mild pulmonary hypertension, estimated pulmonary arterial systolic pressure is 38 mmHg. ? 8. There is no aortic valve stenosis. ? 9. There is no aortic valve regurgitation. ? 10. Patient appears to be in complete heart block during the study. EF preserved by echocardiogram no new wall motion abnormalities. No significant valve pathology. Avoid any and all AV faustino blocking agents. NPO after midnight Thursday night for pacemaker implantation Thursday. We discussed limitations/restrictions post pacemaker implantation. Will defer further specific recommendations per Dr. Oro. (2) CAD (coronary artery disease): Qualifiers: Coronary Disease-Associated Artery/Lesion type: [place] artery [place] vs. transplanted heart: [place] heart Associated angina: without angina Qualified Code(s): I25.10 - Atherosclerotic heart disease of [place] coronary artery without angina pectoris Code(s): I25.10 - Atherosclerotic heart disease of [place] coronary artery without angina pectoris Status: Acute Assessment and Plan: He has multivessel CAD longstanding for many years for which medical management has been desired and pursued. Patient has done exceptionally well in this regard without anginal symptoms with the previous determined preference to avoid CABG for as long as possible. Patient still is not reporting any symptoms suggestive of angina. We discussed planning for coronary angiography for delineation coronary anatomy once he is recovered from pacemaker implantation within the next month given concern I feel complete heart block and conduction system disease progression related underlying CAD. Patient verbalized understanding and agreed with this plan of care. We discussed the high likelihood he would require bypass surgery and as such I will set up coronary angiography as an outpatient when appropriate post pacemaker implantation to be performed at [facility] by my interventional colleagues with cardiothoracic surgery consultation as appropriate. We discussed the pros and cons in this regard and the general risks associated bypass surgery in the fact that he is otherwise doing very well and is asymptomatic from an ischemic perspective. Continue aspirin 81 mg daily, Zetia 10 mg daily, rosuvastatin 40 mg at bedtime. (3) Hypertension: Qualifiers: Hypertension type: primary hypertension Qualified Code(s): I10 - Essential (primary) hypertension Code(s): I10 - Essential (primary) hypertension Status: Acute Assessment and Plan: BP relatively controlled. Continue Losartan but in
[2022-12-28] MEDS: LATANOPROST 0.005% OP SOLN 2.5 ML BTL 1 DROP EACH EYE (20:04)
[2022-12-28] MEDS: ROSUVASTATIN 10 MG TABLET 40 MG PO (20:04)
[2022-12-28] MEDS: FINASTERIDE 5 MG TABLET PO (20:04)
[2022-12-28] MEDS: LOSARTAN POTASSIUM 50 MG TABLET PO (20:05)
[2022-12-29] VITALS (20 sets, daily range): BP systolic 129–179; BP diastolic 74–100; PULSE 37–93; RESP 14–20; TEMP 36.4–36.7; O2SAT 94–99
[2022-12-29 05:01] LABS: Hematocrit 45.9 % (42.0-52.0); Hemoglobin 15.7 g/dL (14.0-18.0); Mean Corpuscular HGB Conc 34.2 g/dl (32-36); Mean Corpuscular Hemoglobin 31.2 pg (26-34); Mean Corpuscular Volume 91.3 fl (80-100); Mean Platelet Volume 10.1 fl (7.4-10.4); Platelet Count Result 243 k/mm3 (150-375); Red Blood Count 5.03 M/mm3 (4.6-6.20); Red Cell Distribution Width 13.4 % (11.5-14.5); White Blood Count 8.3 K/mm3 (4.5-10.0)
[2022-12-29 05:11] LABS: Anion Gap 8 mmol/L (8-16); Blood Urea Nitrogen 17 mg/dL (9-20); Carbon Dioxide 26 mmol/L (22-30); Chloride 107 mmol/L (98-107); Estimated CRCL calculation 61 ml/min; Estimated Glomerular Filt Rate > 60; Glucose 123 mg/dL (65-110); Potassium 3.7 mmol/L (3.4-5.0); Sodium 141 mmol/L (137-145)
[2022-12-29] MEDS: AMOXICILLIN 500 MG CAPSULE PO ×2 (06:32→16:37)
--- NOTE | 2022-12-29 07:11 | ECG_ITS ---
Measurements Intervals [place] Rate: 41 P: [place]: 0 QRS: -30 QRSD: 155 T: -4 QT: 509 QTc: 424 Interpretive Statements SINUS RHYTHM WITH COMPLETE HEART BLOCK JUNTIONAL ESCAPE RHYTHM RIGHT BUNDLE BRANCH BLOCK BASELINE WANDER- V1 ABNORMAL ECG COMPARED TO ECG 12/27/2022 09:59:34 NO SIGNIFICANT CHANGES Electronically Signed On 12-29-2022 10:52:34 CDT by Patrick Lund D.O.
[2022-12-29] MEDS: EZETIMIBE 10 MG TABLET PO (09:43)
[2022-12-29] MEDS: ASPIRIN 81 MG ENTERIC TABLET PO (09:45)
--- NOTE | 2022-12-29 09:57 | WPDMODSED ---
Moderate Sedation Note-Pt Data Patient Data Diagnosis: acquired complete heart block coronary artery disease being treated medically Present Complaint: generalized fatigue/ shortness of breath Procedure to be performed/Plan: implantation of permanent pacemaker Allergies Allergy/AdvReac Type Severity Reaction Status Date / Time No Known Allergies Allergy Verified 12/26/22 20:20 Home Medications Medication Instructions Recorded Confirmed Type Berberine Active 2 tablet PO QHS 12/26/22 12/26/22 History Bio-Calumet 2 tablet PO QAM AND QPM 12/26/22 12/26/22 History Cardio-Plus 3 tablet PO QAM 12/26/22 12/26/22 History Cataplex C 3 tablet PO QAM 12/26/22 12/26/22 History Cayenne Pepper 345 mg PO QAM 12/26/22 12/26/22 History Cyruta Plus 3 tablet PO QAM 12/26/22 12/26/22 History Organically Bound Minerals 3 tablet PO QAM 12/26/22 12/26/22 History Pneumotrophin Pmg 3 tablet PO QAM 12/26/22 12/26/22 History Soybean Lecithin 2 softgel PO QAM 12/26/22 12/26/22 History amlodipine 10 mg tablet 10 mg PO DAILY 12/26/22 12/26/22 History amoxicillin 500 mg capsule 500 mg PO Q8H 12/26/22 12/26/22 History aspirin 81 mg tablet,delayed 81 mg PO DAILY 12/26/22 12/26/22 History release coQ10 (ubiquinol) 100 mg capsule 200 mg PO HS 12/26/22 12/26/22 History ezetimibe 10 mg tablet 10 mg PO DAILY 12/26/22 12/26/22 History finasteride 5 mg tablet 5 mg PO HS 12/26/22 12/26/22 History latanoprost 0.005 % eye drops 1 drp EACH EYE HS 12/26/22 12/26/22 History losartan 25 mg tablet 25 mg PO HS 12/26/22 12/26/22 History magnesium citrate 100 mg tablet 600 mg PO HS 12/26/22 12/26/22 History rosuvastatin 40 mg tablet 40 mg PO HS 12/26/22 12/26/22 History Current Medications: Active Medications Acetaminophen (Acetaminophen 325 Mg Tablet) 650 mg PO Q4H PRN PRN Reason: Mild Pain (1-3) or Fever Amoxicillin (Amoxicillin 500 Mg Capsule) 500 mg PO Q8HR [facility] Last Admin: 12/29/22 06:32 Dose: 500 mg Aspirin (Aspirin 81 Mg Enteric Tablet) 81 mg PO DAILY [facility] Last Admin: 12/29/22 09:45 Dose: 81 mg Ezetimibe (Ezetimibe 10 Mg Tablet) 10 mg PO DAILY [facility] Last Admin: 12/29/22 09:43 Dose: 10 mg Finasteride (Finasteride 5 Mg Tablet) 5 mg PO [facility] Last Admin: 12/28/22 20:04 Dose: 5 mg Latanoprost (Latanoprost 0.005% Op Soln 2.5 Ml Btl) 1 drop EACH EYE [facility] Last Admin: 12/28/22 20:04 Dose: 1 drop Losartan Potassium (Losartan Potassium 50 Mg Tablet) 50 mg PO QHS [facility] Last Admin: 12/28/22 20:05 Dose: 50 mg Home Med Berberine (Active 2 Tablet) 2 tablet PO QHS [facility] Stop: 01/26/23 20:59 Last Admin: 12/28/22 20:09 Dose: 2 tablet Home Med (Bio-[place] 2 (Tablet)) 2 tablet PO BID [facility] Stop: 01/26/23 08:59 Last Admin: 12/28/22 16:56 Dose: 2 tablet Home Med (Cardio- (Plus 3 Tablet)) 3 tablet PO QAM [facility] Stop: 01/26/23 08:59 Last Admin: 12/28/22 09:24 Dose: 3 tablet Home Med (Cataplex C (3 Tablet)) 3 tablet PO QAM [facility] Stop: 01/26/23 08:59 Last Admin: 12/28/22 09:24 Dose: 3 tablet Home Med (Cayenne (Pepper 345 Mg)) [facility]: 01/26/23 08:59 Last Admin: 12/28/22 09:24 Dose: 345 mg Home Med (Coq10 ( Ubiquinol) + Vitamin E 100 Mg/ 20mg Capsule) 200 mg PO [facility] Stop: 01/26/23 20:59 Last Admin: 12/28/22 20:09 Dose: 200 mg Home Med (Cyruta (Plus 3 Tablet)) 3 tablet PO QAM [facility] Stop: 01/26/23 08:59 Last Admin: 12/28/22 09:24 Dose: 3 tablet Home Med (Magnesium Citrate 300 Mg Tablet) 600 mg PO HS [facility] Stop: 01/26/23 20:59 Last Admin: 12/28/22 20:09 Dose: 600 mg Home Med ( Organically Bound Minerals 3 Tablet) 3 tablet PO QAM [facility] Stop: 01/26/23 08:59 Last Admin: 12/28/22 09:25 Dose: 3 tablet Home Med ( Pneumotrophin Pmg 3 Tablet) [facility]: 01/26/23 08:59 Last Admin: 12/28/22 09:25 Dose: 3 tablet Home Med (Soybean (Lecithin 2 Softgel)) 2 softgel PO QAM [facility] Stop: 01/26/23 08:59 Last Admin: 12/28/22 09:25 Dose: 2 softgel Rosuvastatin Calcium (Rosuvastatin 10 Mg
--- NOTE | 2022-12-29 11:52 | ECG_ITS ---
Measurements Intervals [place] Rate: 63 P: 104 [place]: 175 QRS: -58 QRSD: 176 T: 88 QT: 479 QTc: 493 Interpretive Statements ELECTRONIC ATRIAL PACEMAKER ELECTRONIC VENTRICULAR PACEMAKER VENTRICULAR PREMATURE COMPLEXES BASELINE ARTIFACT- V5 NO FURTHER INTERPRETATION IS POSSIBLE ATYPICAL ECG COMPARED TO ECG 12/29/2022 10:03:11 ATRIAL AND VENTRICULAR PACED RHYTHM NOW PRESENT Electronically Signed On 12-29-2022 13:55:15 CDT by Patrick Lund D.O.
--- NOTE | 2022-12-29 11:54 | WPDCARDPROC ---
Cardiac Cath Procedure Note Date of procedure:: 12/29/22 Performing physician:: Hari Oro MD Indication:: complete heart block Brief clinical history:: this is a 77-year-old man with chronic coronary artery disease presenting with symptomatic bradycardia and acquired complete heart block. Procedure Procedure performed:: Permanent pacemaker implantation Sedation/Medication given:: fentanyl 50 mg Versed 2 mg Access site:: right subclavian vein Estimated blood loss:: 25 cc Procedure note:: patient was brought to the cardiac catheterization lab in the postabsorptive state where the right anterior chest wall was prepped and draped in sterile fashion. Patient was requesting a right-sided implant as he is left-handed. About 1 in below the clavicle 20 cc of lidocaine was infiltrated for local anesthesia. An incision was then made from the midclavicular line to the deltopectoral groove. Using sharp and blunt dissection the subcutaneous tissue was to the level of prepectoral fascia. Electrocautery was used to provide cutaneous hemostasis. Following this blunt dissection was used to create a pacemaker pocket inferior to the incision along the fascial plane and this was then packed with an antibiotic-soaked 4 x 4. Attention was then turned to venous access. Using 2 6 Egyptian SafeSheath kits this subclavian vein was punctured twice and the J wires were placed under fluoroscopic visualization into the venous circulation to the level of the right atrium. Using the 2 6 Egyptian Jesus safe sheaths the leads detailed below were placed into the venous circulation and advanced to the right atrium. Attention was then turned to positioning the ventricular lead. The states straight stylet was removed and I used a 3 cc syringe to fashion a J-tip stylet this was placed into lead was negotiated through the right ventricle out to the pulmonary artery position. I then replaced this with a straight stylet withdrew the stylet and placed the lead in the inferoseptal position in the right ventricle. The fixation screw was deployed. The analyzer was used for which demonstrated good pacing and sensing performance and a 10 will stimulate showed no evidence of extracardiac stimulation. Following this attention was turned to the atrial lead position. The straight stylet was removed and a preformed atrial J was a placed into the lead. This was then positioned in the right atrial appendage upon positioning the fixation screw was deployed and upon withdrawal of the stylet the lead tip was fixed into position. The analyzer was then used to demonstrate good pacing and sensing performance and once again a tendril stimulus showed no sign of extracardiac stimulation. The leads were then secured to the base the pocket using the suture sleeves and 2-0 silk ties. The retained sponge was removed from the pocket pocket was then irrigated with antibiotic infused saline. Following this the pacemaker generator was connected to the leads using the torque wrench and the entire assembly was placed into the newly created pocket. The pocket was then closed using 3-0 Vicryl in an interrupted fashion for the subcutaneous tissue and 4-0 Vicryl in a running subcuticular fashion for the skin. The wound was cleansed and then dressed with an Aquacel dressing. The right arm was placed in an immobilizer the patient was taken back to the recovery area in stable condition procedure was well tolerated and uncomplicated. Findings:: The patient received a Biotronik dual-chamber pacing system model Edora 8 [id number]-T [id number]. Serial 7. [id number]. device is programmed in the DDD mode lower rate limit 30 upper rate limit 130. The atrial lead is a Biotronik screw-in bipolar lead model Solia S [id number]. Serial 8. [id number]. The P-waves are sensed at 2.9 mV threshold 1.0 volt at 0.4 milliseconds impedance 526 Ohms. The ventricular lead is a Biotronik screw-in bipolar lead model Solia
--- NOTE | 2022-12-29 14:20 | PM.IMPN ---
Progress Note: A&P Assessment and Plan (1) CHB (complete heart block): Code(s): I44.2 - Atrioventricular block, complete Status: Acute Assessment and Plan: The patient takes a large multitude of supplemental medications from his chiropractor. I was asked to continue with his home medications. Patient stated that he was going to take the regardless if I would order to continue or not.Patient's heart rate is in the 40s to 80s. He is asymptomatic at this time. Diagnosis complete heart block. Status post pulmonary pacemaker implantation 12/29/2022: (2) Hypertension: Qualifiers: Hypertension type: primary hypertension Qualified Code(s): I10 - Essential (primary) hypertension Code(s): I10 - Essential (primary) hypertension Status: Acute Assessment and Plan: Losartan and amlodipine (3) CAD (coronary artery disease): Qualifiers: Coronary Disease-Associated Artery/Lesion type: [place] artery [place] vs. transplanted heart: [place] heart Associated angina: without angina Qualified Code(s): I25.10 - Atherosclerotic heart disease of [place] coronary artery without angina pectoris Code(s): I25.10 - Atherosclerotic heart disease of [place] coronary artery without angina pectoris Status: Acute Assessment and Plan: The patient stated that he has had a cardiac catheterization in the past but had grown some collateral and did not need a stent at the time. The patient stated this is why he started to take all of the supplements. (4) Hyperlipidemia: Qualifiers: Hyperlipidemia type: mixed hyperlipidemia Qualified Code(s): E78.2 - Mixed hyperlipidemia Code(s): E78.5 - Hyperlipidemia, unspecified Status: Acute Assessment and Plan: The patient takes a Co Q10 at home. And is also on Zetia. Continue with Crestor (5) BPH (benign prostatic hyperplasia): Code(s): N40.0 - Benign prostatic hyperplasia without lower urinary tract symptoms Status: Acute Assessment and Plan: Continue with Proscar (6) Macular degeneration: Code(s): H35.30 - Unspecified macular degeneration Status: Acute Assessment and Plan: Continue with home eye drops. Subjective Date/time seen: 12/29/22 14:20 Interval history: Patient underwent pulmonary pacemaker implantation this morning. He denies no other complaints. Review of Systems Review of Systems: All systems reviewed & are unremarkable except as noted in HPI and below Exam Narrative: GENERAL: The patient is well developed, not in acute distress HEENT: Nonicteric sclerae, PERRLA, EOMI. Oropharynx clear. Moist mucous membranes. Conjunctivae appear well perfused. CHEST: Chest wall is nontender. Right chest wall with pacemaker implant covered with dressing HEART: Regular rate, no murmur, rubs, or gallops LUNGS: Clear to auscultation bilaterally. no respiratory distress ABDOMEN: Soft, positive bowel sounds, non-tender, no organomegaly. SKIN: No rash, no excessive bruising, petechiae, or purpura. NEUROLOGIC: Cranial nerves II-XII intact, alert and oriented x 3, no gross motor deficits EXTREMITIES: no edema, cyanosis or clubbing Objective Data Vital Signs Vital Signs: Vital Signs - 24 hr 12/28/22 16:00 12/28/22 16:00 12/28/22 16:00 Temperature 97.6 F Pulse Rate 49 L 46 L Respiratory Rate 20 Blood Pressure 156/75 H Pulse Oximetry 100 Oxygen Delivery Room Air 12/28/22 18:00 12/28/22 20:00 12/28/22 20:00 Temperature 96.9 F L Pulse Rate 47 L 56 L Respiratory Rate 18 Blood Pressure 153/72 H Pulse Oximetry 98 Oxygen Delivery Room Air 12/28/22 20:00 12/28/22 22:00 12/28/22 23:46 Temperature 97.8 F Pulse Rate 43 L 50 L 39 L Respiratory Rate 18 Blood Pressure 147/65 H Pulse Oximetry 97 Oxygen Delivery 12/29/22 00:00 12/29/22 00:00 12/29/22 01:58 Temperature Pulse Rate 38 L 38 L Respiratory Rate Bloo
[2022-12-29] MEDS: ACETAMINOPHEN 325 MG TABLET 650 MG PO (14:47)
[2022-12-29] MEDS: ceFAZolin 1 GM/NS 50 ML 1 GM/50 ML BAG IVPB (19:00)
[2022-12-29] MEDS: LATANOPROST 0.005% OP SOLN 2.5 ML BTL 1 DROP EACH EYE (20:21)
[2022-12-29] MEDS: LOSARTAN POTASSIUM 50 MG TABLET PO (20:21)
[2022-12-29] MEDS: ROSUVASTATIN 10 MG TABLET 40 MG PO (20:21)
[2022-12-29] MEDS: FINASTERIDE 5 MG TABLET PO (20:21)
[2022-12-29] MEDS: HYDROcodone/acetaminophen (*CRX) 5-325 MG TABLET 1 TAB PO (21:05)
[2022-12-30] VITALS (9 sets, daily range): BP systolic 137–156; BP diastolic 68–84; PULSE 60–89; RESP 16–18; TEMP 36.6–37.6; O2SAT 96–98
[2022-12-30] MEDS: ceFAZolin 1 GM/NS 50 ML 1 GM/50 ML BAG IVPB (03:05)
[2022-12-30] MEDS: ASPIRIN 81 MG ENTERIC TABLET PO (08:34)
[2022-12-30] MEDS: EZETIMIBE 10 MG TABLET PO (08:34)
--- NOTE | 2022-12-30 09:52 | PM.PNCARD ---
Progress Note: A&P Assessment and Plan (1) CHB (complete heart block): Code(s): I44.2 - Atrioventricular block, complete Status: Acute Assessment and Plan: Status post dual chamber Biotronik device yesterday. Awaiting chest x-ray and device interrogation today. If both are unremarkable, he can be discharged later today 2D echocardiogram summary ? 1. Left ventricular chamber dimension is normal. ? 2. Left ventricular systolic function is normal, estimated at 65-70%. ? 3. There is mildly increased left ventricular wall thickness. ? 4. The left ventricular diastolic function is grade I diastolic dysfunction. ? 5. There is mild mitral valve regurgitation. ? 6. There is mild tricuspid valve regurgitation. ? 7. Mild pulmonary hypertension, estimated pulmonary arterial systolic pressure is 38 mmHg. ? 8. There is no aortic valve stenosis. ? 9. There is no aortic valve regurgitation. ? 10. Patient appears to be in complete heart block during the study. EF preserved by echocardiogram no new wall motion abnormalities. No significant valve pathology. Pacemaker/wound check in 1 week in our office. Follow up with Dr. Broderick (2) CAD (coronary artery disease): Qualifiers: Coronary Disease-Associated Artery/Lesion type: [place] artery [place] vs. transplanted heart: [place] heart Associated angina: without angina Qualified Code(s): I25.10 - Atherosclerotic heart disease of [place] coronary artery without angina pectoris Code(s): I25.10 - Atherosclerotic heart disease of [place] coronary artery without angina pectoris Status: Acute Assessment and Plan: He has multivessel CAD longstanding for many years for which medical management has been desired and pursued. Patient has done exceptionally well in this regard without anginal symptoms with the previous determined preference to avoid CABG for as long as possible. Patient still is not reporting any symptoms suggestive of angina. We discussed planning for coronary angiography for delineation coronary anatomy once he is recovered from pacemaker implantation within the next month given concern I feel complete heart block and conduction system disease progression related underlying CAD. Patient verbalized understanding and agreed with this plan of care. We discussed the high likelihood he would require bypass surgery and as such he will be set up coronary angiography as an outpatient when appropriate post pacemaker implantation to be performed at [facility] by my interventional colleagues with cardiothoracic surgery consultation as appropriate. We discussed the pros and cons in this regard and the general risks associated bypass surgery in the fact that he is otherwise doing very well and is asymptomatic from an ischemic perspective. Continue aspirin 81 mg daily, Zetia 10 mg daily, rosuvastatin 40 mg at bedtime. (3) Hypertension: Qualifiers: Hypertension type: primary hypertension Qualified Code(s): I10 - Essential (primary) hypertension Code(s): I10 - Essential (primary) hypertension Status: Acute Assessment and Plan: BP relatively controlled. Continue Losartan but increased to 50 mg daily. (4) Hyperlipidemia: Qualifiers: Hyperlipidemia type: mixed hyperlipidemia Qualified Code(s): E78.2 - Mixed hyperlipidemia Code(s): E78.5 - Hyperlipidemia, unspecified Status: Acute Assessment and Plan: Aggressive lipid management with Zetia 10 mg daily and rosuvastatin 40 mg at bedtime. Goal LDL less than 70. Patient has been controlled in the past. Subjective Date/time seen: 12/30/22 09:52 Interval history: 77-year-old with intermittent complete heart block Date of service 12/30/2022: Status post dual chamber Biotronik device yesterday. Uncomplicated implantation. Feels fine today. Pain is controlled. No chest discomfort, shortness of breath. Review of Systems Review of Sy
--- NOTE | 2022-12-30 13:32 | PM.DS ---
DS: Admitting Diagnosis Discharge Date 12/30/2022 Admitting Diagnosis Complete heart block DS: Discharge Diagnosis Discharge Diagnosis (1) CHB (complete heart block): Code(s): I44.2 - Atrioventricular block, complete Status: Acute (2) Hypertension: Qualifiers: Hypertension type: primary hypertension Qualified Code(s): I10 - Essential (primary) hypertension Code(s): I10 - Essential (primary) hypertension Status: Acute (3) CAD (coronary artery disease): Qualifiers: Coronary Disease-Associated Artery/Lesion type: [place] artery [place] vs. transplanted heart: [place] heart Associated angina: without angina Qualified Code(s): I25.10 - Atherosclerotic heart disease of [place] coronary artery without angina pectoris Code(s): I25.10 - Atherosclerotic heart disease of [place] coronary artery without angina pectoris Status: Acute (4) Hyperlipidemia: Qualifiers: Hyperlipidemia type: mixed hyperlipidemia Qualified Code(s): E78.2 - Mixed hyperlipidemia Code(s): E78.5 - Hyperlipidemia, unspecified Status: Acute (5) BPH (benign prostatic hyperplasia): Code(s): N40.0 - Benign prostatic hyperplasia without lower urinary tract symptoms Status: Acute (6) Macular degeneration: Code(s): H35.30 - Unspecified macular degeneration Status: Acute DS: Summary Hospital Course Hospital Course: 77-year-old male who presented from [facility] office with findings of complete heart block on the EKG. Patient asymptomatic. Patient not on beta-kita or calcium channel kita. History of sick sinus syndrome and was admitted for pacemaker implantation. Cardiology was consulted and he underwent pacemaker implantation on 12/29/2022. He tolerated the procedure well and was cleared by Cardiology for discharge and to follow-up as an outpatient basis. Time Spent with Patient Time attestation: Total time spent providing and/or coordinating discharge services: 40 minutes Exam Narrative: GENERAL: The patient is well developed, not in acute distress HEENT: Nonicteric sclerae, PERRLA, EOMI. Oropharynx clear. Moist mucous membranes. Conjunctivae appear well perfused. CHEST: Chest wall is nontender. Right chest wall with pacemaker implant covered with dressing HEART: Regular rate, no murmur, rubs, or gallops LUNGS: Clear to auscultation bilaterally. no respiratory distress ABDOMEN: Soft, positive bowel sounds, non-tender, no organomegaly. SKIN: No rash, no excessive bruising, petechiae, or purpura. NEUROLOGIC: Cranial nerves II-XII intact, alert and oriented x 3, no gross motor deficits EXTREMITIES: no edema, cyanosis or clubbing DS: Data Procedures/Treatments: Cardiac Cath Procedure Note Date of procedure:: 12/29/22 Performing physician:: Hari Oro MD Indication:: ?complete heart block Brief clinical history:: ?this is a 77-year-old man with chronic coronary artery disease presenting with symptomatic bradycardia and acquired complete heart block. Procedure Procedure performed:: ? Permanent pacemaker implantation Sedation/Medication given:: ?fentanyl 50 mg ?Versed 2 mg Access site:: ?right subclavian vein Estimated blood loss:: ?25 cc Procedure note:: ?patient was brought to the cardiac catheterization lab in the postabsorptive state where the right anterior chest wall was prepped and draped in sterile fashion.? Patient was requesting a right-sided implant as he is left-handed.? About 1 in below the clavicle 20 cc of lidocaine was infiltrated for local anesthesia.? An incision was then made from the midclavicular line to the deltopectoral groove.? Using sharp and blunt dissection the subcutaneous tissue was to the level of prepectoral fascia.? Electrocautery was used to provide cutaneous hemostasis.? Following this blunt dissection was used to create a pacemaker pocket inferior to the incision along the fascial plane a
== END 2022-12-30 15:00 | disposition home or self-care (01) | DRG 244 ==
LOC: ANHED 17:42 → ANHIMU 17:46
PROVIDERS: Emergency Medicine; Internal Medicine Cardiovascular Disease; Nurse Practitioner; Specialist; Admitting Provider Internal Medicine; Emergency Provider Emergency Medicine; PCP Family Medicine; Visit Provider Internal Medicine
PROC: 0JH606Z Insertion of Pacemaker, Dual Chamber into Chest Subcutaneous Tissue and Fascia, Open Approach (ICD-10-PCS; CPT 33208; principal; 2022-12-29 10:00)
DX: I44.2 Atrioventricular block, complete (principal); I10 Essential (primary) hypertension; I25.10 Atherosclerotic heart disease of native coronary artery without angina pectoris; E78.2 Mixed hyperlipidemia; N40.0 Benign prostatic hyperplasia without lower urinary tract symptoms; H35.30 Unspecified macular degeneration; Z87.891 Personal history of nicotine dependence
CPT/HCPCS: 33208; 36415; 71045; 71046; 80048; 80053; 83690; 83735; 83880; 84439; 84443; 84480; 84484; 85025; 85027; 85610; 85730; 93005; 99285; A9270; C1779; C1785; C8929; J0690; J2250; J3010; J7040; Q9957

== ENCOUNTER 2024-09-01 00:06 | Day surgery (SDC) | payer MEDICARE, SELFPAY ==
[2024-08-31 14:15] VITALS: BMI 29.7
[2024-09-01] VITALS (13 sets, daily range): BP systolic 108–151; BP diastolic 66–87; PULSE 60–69; RESP 12–19; TEMP 36.4; O2SAT 91–98; BMI 32.1
--- OUTSIDE RECORDS SUMMARY | 2024-09-01 00:09 | XMS_ITS | Clinical Summary ---
Author Organization [facility] Address [id number] [place] [id number] Care Team Providers Care Billing Supervisor Name Role Phone Remi Hernandez MD Primary Care Provider [phone] Allergies No known active allergies Medications finasteride (PROSCAR) 5 mg tablet TAKE ONE TABLET BY MOUTH ONCE DAILY 30 Tablet 6 1 Active ALPRAZolam (XANAX) 0.5 mg tablet TAKE 1 TABLET BY MOUTH BEFORE BED AND 1 TABLET BY MOUTH 1 HOUR PRIOR TO APPOINTMENT 4 Tablet 11/17/2022 4:52 PM CDT 3 Active amoxicillin (AMOXIL) 500 mg capsule Take 1 Capsule (500 mg) by mouth every 8 hours until gone 40 Capsule 12/15/2022 12:26 PM CDT 3 Active ibuprofen (MOTRIN) 800 mg tablet Take 1 Tablet (800 mg) by mouth every 8 hours as needed for pain 21 Tablet 12/15/2022 12:26 PM CDT 3 Active nitroglycerin (NITROSTAT) 0.4 mg Tablet, Sublingual Place 1 tablet (0.4 mg total) under the tongue every 5 (five) minutes as needed for chest pain. May take up to 3 tablets. 25 Tablet 1 04/07/2023 11:59 AM CDT 3 Active finasteride (PROSCAR) 5 mg tablet Take one tablet by mouth once daily 90 Tablet 05/14/2023 2:29 PM [employer] 3 Active losartan (COZAAR) 50 mg tablet Take 1 Tablet (50 mg) by mouth daily at bedtime. 90 Tablet 3 07/16/2024 11:13 AM [employer] 4 Active ALPRAZolam (XANAX) 0.5 mg tablet Take 1 tablet (0.5 mg) before bed and 1 tablet (0.5 mg) one hour prior to appointment. 4 Tablet 04/08/2024 2:50 PM CDT 4 Active latanoprost (XALATAN) 0.005 % solution Administer 1 Drop in both eyes daily at bedtime. 7.5 mL 3 04/20/2024 10:09 AM CDT 4 Active amLODIPine (NORVASC) 10 mg tablet Take 1 Tablet (10 mg) by mouth daily. 30 Tablet 2 07/16/2024 11:13 AM [employer] 5 Active rosuvastatin (CRESTOR) 40 mg tablet Take 1 Tablet (40 mg) by mouth daily. 90 Tablet 2 07/16/2024 11:13 AM [employer] 5 Active ezetimibe (ZETIA) 10 mg tablet TAKE ONE TABLET BY MOUTH ONCE DAILY 90 Tablet 08/01/2024 2:56 PM [employer] 5 Active finasteride (PROSCAR) 5 mg tablet Take 1 Tablet (5 mg) by mouth daily. 90 Tablet 1 08/01/2024 2:56 PM [employer] 5 Active Encounters Date Type Department Care Team Description 08/16/2024 External Device Data [facility] Provider, Abstract 07/20/2024 External Device Data [facility] Provider, Abstract 07/20/2024 External Device Data [facility] Provider, Abstract 07/15/2024 Refill [facility] - [address] [place] [address] Madhu Broderick MD from Last 3 Months Social History Tobacco Use Types Packs/Day Years Used Date Smoking Tobacco: Never Assessed Sex and Gender Information Value Date Recorded Sex Assigned at Not on file Legal Sex Male 1:23 PM [employer] Gender Identity Not on file Sexual Orientation Not on file Last Filed Vital Signs Vital Sign Reading Time Taken Comments Blood Pressure 148/93 05/21/2020 12:31 PM [employer] Pulse 101 05/21/2020 12:31 PM [employer] Temperature - - Respiratory Rate - - Oxygen Saturation - - Inhaled Oxygen Concentration - - Weight 90.7 kg (200 lb) 05/21/2020 12:31 PM [employer] Height 170.2 cm (5' 7 ) 05/21/2020 12:31 PM [employer] Body Mass Index 31.32 05/21/2020 12:31 PM [employer] Plan of Treatment Health Maintenance Due Date Last Done Comments DTAP/TDAP/TD VACCINES (1 - Tdap) 1965 PNEUMOCOCCAL VACCINE 50+ YEARS (1 of 1 - PCV) 05/23/19 96 ZOSTER VACCINE (1 of 2) 1996 RSV VACCINE (60+ or ) (1 - 1-dose 75+ series) 2021 INFLUENZA VACCINE (#1) 2024 Insurance Medicare Part D Care Teams Billing Supervisor Relationship Specialty Start Date End Date Remi Hernandez MD [address] [place] [address] PCP - General Family Practice 05/21/20
--- OUTSIDE RECORDS SUMMARY | 2024-09-01 00:09 | XMS_ITS | Data Portability ---
Author Organization [facility] - [facility], PKaden, [facility] Address [address] [place] [address] Assessment No assessment recorded. Plan of Treatment Reminders Order Date Submit Date Provider Last Modified By Organization Details Last Modified Time Details Appointments None recorded. Lab vitamin B12 + folate, serum or blood 2023 024 ILDEFONSO In-House Results, For Internal Use Only, Do Not Delete/merge, [id number] 4 14:38:02 iron + TIBC + ferritin, serum 2023 024 ILDEFONSO In-House Results, For Internal Use Only, Do Not Delete/merge, [id number] 4 14:38:00 vitamin D3, 25-hydroxy, serum 2023 024 [email or web address] In-House Results, For Internal Use Only, Do Not Delete/merge, [id number] 4 07:29:29 CBC w/ auto diff 2023 024 ILDEFONSO In-House Results, For Internal Use Only, Do Not Delete/merge, [id number] 4 14:37:59 testosteron e, total, serum 2023 024 ILDEFONSO In-House Results, For Internal Use Only, Do Not Delete/merge, [id number] 4 14:38:01 CMP, serum or plasma 2023 024 ILDEFONSO In-House Results, For Internal Use Only, Do Not Delete/merge, [id number] 4 14:38:00 PSA, serum or plasma 2023 024 ILDEFONSO In-House Results, For Internal Use Only, Do Not Delete/merge, [id number] 4 14:38:01 CMP, serum or plasma 2023 024 [email or web address] Not available 4 08:04:22 HbA1c (hemoglobin A1c), blood 2023 024 amalic Not available 4 08:04:23 vitamin D3, 25-hydroxy, serum 2023 024 [email or web address] In-House Results, For Internal Use Only, Do Not Delete/merge, [id number] 4 08:04:22 CBC w/ auto diff 2023 024 amalic Not available 4 08:04:23 TSH, serum or plasma 2023 024 amalic Not available 4 08:04:23 CMP, serum or plasma 2022 023 ILDEFONSO Not available 3 04:08:48 HbA1c (hemoglobin A1c), blood 2022 023 ILDEFONSO Not available 3 04:08:48 vitamin D3, 25-hydroxy, serum 2022 023 [email or web address] In-House Results, For Internal Use Only, Do Not Delete/merge, [id number] 3 09:02:43 CBC w/ auto diff 2022 023 ILDEFONSO Not available 3 04:08:47 TSH, serum or plasma 2022 023 ILDEFONSO Not available 3 04:08:47 Referral physical therapist referral 2023 024 amalic Not available 4 07:33:23 Procedures None recorded. Surgeries None recorded. Imaging None recorded. Medication Orders [facility] 2022 023 [email or web address] [facility], [address] , [place], [place], [id number], 4 14:43:37 compounded medication 2022 023 [email or web address] [facility], [address] , [place], [place], [id number], 4 16:33:02 [facility] 2022 023 amalic [facility], [address] [place], [place], [id number], 4 14:43:37 compounded medication [email or web address] [facility], [address] , [place], [place], [id number], 4 16:33:05 Patient TargetsNo targets recorded. Patient Instructions Encounter Date Encounter Id Patient Instructions Last Modified By Organization Details Last Modified Time 01/05/2023 [id number] heart blocks: care instructions [email or web address] Not available 01/05/2023 15:23:03 Arnica 30x 3 tablets 4 times daily 2 days before and 7 days after surgery. [email or web address] Not available 01/05/2023 15:20:46 03/09/2023 [id number] heart blocks: care instructions [email or web address] Not available 03/09/2023 17:05:31 Reason for Referral Physical Therapist Referral for Left rotator cuff strain Referring Physician: Remi Hernandez, Family Medicine, Encounter Date: 03/10/2024 Results Created Date Observation Date Name Description Value Unit Range Abnormal Flag Note LastModifiedBy Organization Detail LastModifiedTime 09/02/1909/01/2022 VITAM IN D, 25-OH (TOTA L D2/D3 ) vitamin D, 25-hydroxy, total 34.6 NG/mL 30.0-1 00.0 Sugge stive of Defic iency : <20 ng/mL Sugge stive of Insuf ficie ncy: 20-29 ng/mL Sugge stive of Suffi cienc y: 30-10 0 ng/mL Sugge stive of Toxic ity: >150 ng/mL Not Available [facility] (Lab) [address], [place], [address], 09/02/2022 04:08:40 09/02/19 23 09/01/2022 CBC W/DIF F WBC 8.6 10'3/ uL 3.6-10 .2 Not Available [facility] (Lab) [address], [place], [address], 09/02/2022 04:08:46 09/02/19 23 09/01/2022 CBC W/DIF F RBC 5.00 10'6/ uL (based on docume nted legal sex) 4.40-6 .00 Not Available [facility] (Lab) [address], [place], [address], 09/02/2022 04:08:46 09/02/19 23 09/01/2022 CBC W/DIF F HGB 15.7 g/dL (based on docume nted legal sex) 13.2-1 8.0 Not Available [facility] (Lab) [address], [place], [address], 09/02/2022 04:08:46 09/02/19 23 09/01/2022 CBC W/DIF F HCT 45.7 % (based on docume nted legal sex) 41.0-5 5.0 Not Available [facility] (Lab) [address], [place], [address], 09/02/2022 04:08:46 09/02/1909/01/2022 CBC W/DIF F MCV 91.4 fL 82.0-9 9.0 Not Available [facility] (Lab) [address], [place], [address], 09/02/2022 04:08:46 09/02/19 23 09/01/2022 CBC W/DIF F MCH 31.4 pg 27.0-3 3.0 Not Available [facility] (Lab) [address] [place], [address], 09/02/2022 04:08:46 09/02/19 23 09/01/2022 CBC W/DIF F MCHC 34.4 g/dL 32.0-3 6.0 Not Available [facility] (Lab) [address], [place], [address], 09/02/2022 04:08:46 09/02/19 23 09/01/2022 CBC W/DIF F RDW 13.9 % 11.0-1 5.0 Not Available [facility] (Lab) [address], [place], [address], 09/02/2022 04:08:46 09/02/19 23 09/01/2022 CBC W/DIF F plt 239 10'3/ uL 150-45 0 Not Available [facility] (Lab) [address], [place], [address], 09/02/2022 04:08:46 09/02/19 23 09/01/2022 CBC W/DIF F MPV 10.9 fL 9.8-12 .7 Not Available [facility] (Lab) [address], [place], [address], 09/02/2022 04:08:46 09/02/19 23 09/01/2022 CBC W/DIF F NRBC's 0.0 % 0 Not Available [facility] (Lab) [address], [place], [address], 09/02/2022 04:08:46 09/02/19 23 09/01/2022 CBC W/DIF F absolute NRBCs 0.0 10'3/ uL 0 Not Available [facility] (Lab) [address], [place], [address], 09/02/2022 04:08:46 09/02/19 23 09/01/2022 CBC W/DIF F neutrophils 54.0 % 37.0-7 2.0 Not Available [facility] (Lab) [address] [place], [address], 09/02/2022 04:08:46 09/02/19 23 09/01/2022 CBC W/DIF F lymphocytes 28.3 % 16.0-4 8.0 Not Available [facility] (Lab) [address] [address], [place], [address], 09/02/2022 04:08:46 09/02/19 23 09/01/2022 CBC W/DIF F monocytes 11.4 % 4.0-14 .0 Not Available [facility] (Lab) [address] [address], [place], [address], 09/02/2022 04:08:46 09/02/19 23 09/01/2022 CBC W/DIF F eosinophils 5.2 % 0.0-9. 0 Not Available [facility] (Lab) [address], [place], [address], 09/02/2022 04:08:46 09/02/19 23 09/01/2022 CBC W/DIF F basophils 1.0 % 0.0-2. 0 Not Available [facility] (Lab) [address], [place], [address], 09/02/2022 04:08:46 09/02/19 23 09/01/2022 CBC W/DIF F immature granulocytes 0.1 % no define d refere nce range Not Available [facility] (Lab) [address], [place], [address], 09/02/2022 04:08:46 09/02/19 23 09/01/2022 CBC W/DIF F absolute neutrophils 4.6 10'3/ uL 1.1-6. 0 Not Available [facility] (Lab) [address] [place], [address], 09/02/2022 04:08:46 09/02/19 23 09/01/2022 CBC W/DIF F absolute lymphocytes 2.4 10'3/ uL 0.7-3. 4 Not Available [facility] (Lab) [address], [place], [address], 09/02/2022 04:08:46 09/02/19 23 09/01/2022 CBC W/DIF F absolute monocytes 1.0 10'3/ uL 0.3-1. 0 Not Available [facility] (Lab) [address], [place], [address], 09/02/2022 04:08:46 09/02/19 23 09/01/2022 CBC W/DIF F absolute eosinophils 0.5 10'3/ uL 0.0-0. 6 Not Available [facility] (Lab) [address], [place], [address], 09/02/2022 04:08:46 09/02/19 23 09/01/2022 CBC W/DIF F absolute basophils 0.1 10'3/ uL 0.0-0. 1 Not Available [facility] (Lab) [address], [place], [address], 09/02/2022 04:08:46 09/02/19 23 09/01/2022 CBC W/DIF F absolute immature granulocytes 0.0 10'3/ uL 0.00-0 .10 023 1:44 AM: P indic ates parti al resul ts on a panel have been relea sed. Addit ional resul ts will follo w. 023 1:44 AM: This resul t has been final verif ied. No addit ional or ashley ed resul ts are expec belia. Not Available [facility] (Lab) [address], [place], [address], 09/02/2022 04:08:46 09/02/19 23 09/01/2022 TSH TSH 3.81 uIU/m L 0.30-5 .33 Not Available [facility] (Lab) [address], [place], [address], 09/02/2022 04:08:47 09/02/19 23 09/01/2022 CMP(C OMPRE HENSI VE METAB OLIC PANEL ) sodium 144 mmol/ L 133-14 6 Not Available [facility] (Lab) [address], [place], [address], 09/02/2022 04:08:48 09/02/19 23 09/01/2022 CMP(C OMPRE HENSI VE METAB OLIC PANEL ) potassium 3.8 mmol/ L 3.5-5. 1 Not Available [facility] (Lab) [address], [place], [address], 09/02/2022 04:08:48 09/02/19 23 09/01/2022 CMP(C OMPRE HENSI VE METAB OLIC PANEL ) chloride 110 mmol/ L 98-107 high Not Available [facility] (Lab) [address], [place], [address], 09/02/2022 04:08:48 09/02/19 23 09/01/2022 CMP(C OMPRE HENSI VE METAB OLIC PANEL ) carbon dioxide 24 mmol/ L 21-31 Not Available [facility] (Lab) [address], [place], [address], 09/02/2022 04:08:48 09/02/19 23 09/01/2022 CMP(C OMPRE HENSI VE METAB OLIC PANEL ) anion gap 10 mmol/ L 4-13 Not Available [facility] (Lab) [address] [place], [address], 09/02/2022 04:08:48 09/02/19 23 09/01/2022 CMP(C OMPRE HENSI VE METAB OLIC PANEL ) blood urea nitrogen 15 mg/dL 7-25 Not Available [facility] (Lab) [address], [place], [address], 09/02/2022 04:08:48 09/02/19 23 09/01/2022 CMP(C OMPRE HENSI VE METAB OLIC PANEL ) creatinine 0.95 mg/dL 0.60-1 .30 Not Available [facility] (Lab) [address], [place], [address], 09/02/2022 04:08:48 09/02/19 23 09/01/2022 CMP(C OMPRE HENSI VE METAB OLIC PANEL ) egfrcr (CKD-epi 2020) 83 mL/mi n/1.7 3_m2 >=60 Not Available [facility] (Lab) [address], [place], [address], 09/02/2022 04:08:48 09/02/19 23 09/01/2022 CMP(C OMPRE HENSI VE METAB OLIC PANEL ) calcium 10.5 mg/dL 8.3-10 .5 Not Available [facility] (Lab) [address], [place], [address], 09/02/2022 04:08:48 09/02/19 23 09/01/2022 CMP(C OMPRE HENSI VE METAB OLIC PANEL ) glucose 98 mg/dL 70-100 Not Available [facility] (Lab) [address], [place], [address], 09/02/2022 04:08:48 09/02/19 23 09/01/2022 CMP(C OMPRE HENSI VE METAB OLIC PANEL ) protein, total 7.0 g/dL 6.4-8. 3 Not Available [facility] (Lab) [address], [place], [address], 09/02/2022 04:08:48 09/02/19 23 09/01/2022 CMP(C OMPRE HENSI VE METAB OLIC PANEL ) albumin 4.5 g/dL 3.5-5. 0 Not Available [facility] (Lab) [address], [place], [address], 09/02/2022 04:08:48 09/02/19 23 09/01/2022 CMP(C OMPRE HENSI VE METAB OLIC PANEL ) ALT 43 units /L 11-51 Not Available [facility] (Lab) [address], [place], [address], 09/02/2022 04:08:48 09/02/19 23 09/01/2022 CMP(C OMPRE HENSI VE METAB OLIC PANEL ) alkaline phosphatase 42 units /L 34-104 Not Available [facility] (Lab) [address], [place], [address], 09/02/2022 04:08:48 09/02/19 23 09/01/2022 CMP(C OMPRE HENSI VE METAB OLIC PANEL ) AST 31 units /L 13-39 Not Available [facility] (Lab) [address], [place], [address], 09/02/2022 04:08:48 09/02/19 23 09/01/2022 CMP(C OMPRE HENSI VE METAB OLIC PANEL ) bilirubin, total 0.4 mg/dL 0.2-1. 2 Not Available [facility] (Lab) [address], [place], [address], 09/02/2022 04:08:48 09/02/19 23 09/01/2022 HEMOG LOBIN A1C hemoglobin A1C 6.7 % 0-5.6 high The Ameri can [employer] [facility] i[employer] n recom mends that a prima ry goal of thera py katharina li be a HBA1C of < 7% and that physi cians katharina d reeva luate the treat ment regim en in patie nts with HBA1C value s consi stent ly > 8%. <5.7% Carol l 5.7 - 6.4% Incre ased risk for diabe shahla >=6.5 % Diagn ostic of diabe shahla <7.0% Goal of thera py >8.0% Actio n haritha tompkins Not Available [facility] (Lab) [address], [place], [address], 09/02/2022 04:08:48 09/21/19 24 09/21/2023 CBC W/DIF F WBC 7.9 10'3/ uL 3.5-10 .5 Not Available [facility] (Lab) [address], [place], [address], 09/22/2023 06:53:33 09/21/19 24 09/21/2023 CBC W/DIF F RBC 4.84 10'6/ uL (based on docume nted legal sex) 4.30-5 .80 Not Available [facility] (Lab) [address], [place], [address], 09/22/2023 06:53:33 09/21/19 24 09/21/2023 CBC W/DIF F HGB 15.0 g/dL (based on docume nted legal sex) 13.0-1 7.5 Not Available [facility] (Lab) [address], [place], [address], 09/22/2023 06:53:33 09/21/19 24 09/21/2023 CBC W/DIF F HCT 45.2 % (based on docume nted legal sex) 38.0-5 0.0 Not Available [facility] (Lab) [address], [place], [address], 09/22/2023 06:53:33 09/21/19 24 09/21/2023 CBC W/DIF F MCV 93.4 fL 80.0-9 9.0 Not Available [facility] (Lab) [address] [place], [address], 09/22/2023 06:53:33 09/21/19 24 09/21/2023 CBC W/DIF F MCH 31.0 pg 27.0-3 4.0 Not Available [facility] (Lab) [address] [place], [address], 09/22/2023 06:53:33 09/21/19 24 09/21/2023 CBC W/DIF F MCHC 33.2 g/dL 32.0-3 5.5 Not Available [facility] (Lab) [address], [place], [address], 09/22/2023 06:53:33 09/21/19 24 09/21/2023 CBC W/DIF F RDW 13.9 % 11.0-1 5.0 Not Available [facility] (Lab) [address], [place], [address], 09/22/2023 06:53:33 09/21/19 24 09/21/2023 CBC W/DIF F plt 265 10'3/ uL 150-40 0 Not Available [facility] (Lab) [address], [place], [address], 09/22/2023 06:53:33 09/21/19 24 09/21/2023 CBC W/DIF F MPV 10.8 fL 8.8-12 .1 Not Available [facility] (Lab) [address], [place], [address], 09/22/2023 06:53:33 09/21/19 24 09/21/2023 CBC W/DIF F NRBC's 0.0 % 0.0 Not Available [facility] (Lab) [address], [place], [address], 09/22/2023 06:53:33 09/21/19 24 09/21/2023 CBC W/DIF F absolute NRBCs 0.0 10'3/ uL 0.0 Not Available [facility] (Lab) [address], [place], [address], 09/22/2023 06:53:33 09/21/19 24 09/21/2023 CBC W/DIF F neutrophils 54.8 % 34.0-7 3.0 Not Available [facility] (Lab) [address], [place], [address], 09/22/2023 06:53:33 09/21/19 24 09/21/2023 CBC W/DIF F lymphocytes 27.8 % 15.0-5 0.0 Not Available [facility] (Lab) [address], [place], [address], 09/22/2023 06:53:33 09/21/19 24 09/21/2023 CBC W/DIF F monocytes 12.4 % 1.0-15 .0 Not Available [facility] (Lab) [address] [place], [address], 09/22/2023 06:53:33 09/21/19 24 09/21/2023 CBC W/DIF F eosinophils 3.3 % 0.0-8. 0 Not Available [facility] (Lab) [address] [place], [address], 09/22/2023 06:53:33 09/21/19 24 09/21/2023 CBC W/DIF F basophils 1.3 % 0.0-2. 0 Not Available [facility] (Lab) [address] [place], [address], 09/22/2023 06:53:33 09/21/19 24 09/21/2023 CBC W/DIF F immature granulocytes 0.4 % no define d refere nce range Not Available [facility] (Lab) [address], [place], [address], 09/22/2023 06:53:33 09/21/19 24 09/21/2023 CBC W/DIF F absolute neutrophils 4.4 10'3/ uL 1.5-8. 0 Not Available [facility] (Lab) [address] [place], [address], 09/22/2023 06:53:33 09/21/19 24 09/21/2023 CBC W/DIF F absolute lymphocytes 2.2 10'3/ uL 1.0-4. 0 Not Available [facility] (Lab) [address] [place], [address], 09/22/2023 06:53:33 09/21/19 24 09/21/2023 CBC W/DIF F absolute monocytes 1.0 10'3/ uL 0.2-1. 0 Not Available [facility] (Lab) [address], [place], [address], 09/22/2023 06:53:33 09/21/19 24 09/21/2023 CBC W/DIF F absolute eosinophils 0.3 10'3/ uL 0.0-0. 6 Not Available [facility] (Lab) [address], [place], [address], 09/22/2023 06:53:33 09/21/19 24 09/21/2023 CBC W/DIF F absolute basophils 0.1 10'3/ uL 0.0-0. 3 Not Available [facility] (Lab) [address], [place], [address], 09/22/2023 06:53:33 09/21/19 24 09/21/2023 CBC W/DIF F absolute immature granulocytes 0.0 10'3/ uL 0.00-0 .10 2023 4:30 AM: P indic ates parti al resul ts on a panel have been relea sed. Addit ional resul ts will follo w. 2023 4:30 AM: This resul t has been final verif ied. No addit ional or ashley ed resul ts are expec belia. Not Available [facility] (Lab) [address], [place], [address], 09/22/2023 06:53:33 09/21/19 24 09/21/2023 HEMOG LOBIN A1C hemoglobin A1C 6.6 % 0-5.6 high The Ameri can [employer] iatio n recom mends that a prima ry goal of thera py katharina d be a HBA1C of < 7% and that physi cians katharina d reeva luate the treat ment regim en in patie nts with HBA1C value s consi stent ly > 8%. <5.7% Carol l 5.7 - 6.4% Incre ased risk for diabe shahla >=6.5 % Diagn ostic of diabe shahla <7.0% Goal of thera py >8.0% Actio n harrisge sted Not Available [facility] (Lab) [address], [place], [address], 09/22/2023 06:53:34 09/21/19 24 09/21/2023 CMP(C OMPRE HENSI VE METAB OLIC PANEL ) sodium 144 mmol/ L 133-14 6 Not Available [facility] (Lab) [address], [place], [address], 09/22/2023 06:53:34 09/21/19 24 09/21/2023 CMP(C OMPRE HENSI VE METAB OLIC PANEL ) potassium 3.8 mmol/ L 3.5-5. 1 Not Available [facility] (Lab) [address], [place], [address], 09/22/2023 06:53:34 09/21/19 24 09/21/2023 CMP(C OMPRE HENSI VE METAB OLIC PANEL ) chloride 109 mmol/ L 98-107 high Not Available [facility] (Lab) [address], [place], [address], 09/22/2023 06:53:34 09/21/19 24 09/21/2023 CMP(C OMPRE HENSI VE METAB OLIC PANEL ) carbon dioxide 27 mmol/ L 21-31 Not Available [facility] (Lab) [address], [place], [address], 09/22/2023 06:53:34 09/21/19 24 09/21/2023 CMP(C OMPRE HENSI VE METAB OLIC PANEL ) anion gap 8 mmol/ L 4-13 Not Available [facility] (Lab) [address] [place], [address], 09/22/2023 06:53:34 09/21/19 24 09/21/2023 CMP(C OMPRE HENSI VE METAB OLIC PANEL ) blood urea nitrogen 18 mg/dL 7-25 Not Available [facility] (Lab) [address], [place], [address], 09/22/2023 06:53:34 09/21/19 24 09/21/2023 CMP(C OMPRE HENSI VE METAB OLIC PANEL ) creatinine 1.11 mg/dL 0.60-1 .30 Not Available [facility] (Lab) [address], [place], [address], 09/22/2023 06:53:34 09/21/19 24 09/21/2023 CMP(C OMPRE HENSI VE METAB OLIC PANEL ) egfrcr (CKD-epi 2020) 68 mL/mi n/1.7 3_m2 >=60 Not Available [facility] (Lab) [address], [place], [address], 09/22/2023 06:53:34 09/21/19 24 09/21/2023 CMP(C OMPRE HENSI VE METAB OLIC PANEL ) calcium 10.7 mg/dL 8.3-10 .5 high Not Available [facility] (Lab) [address], [place], [address], 09/22/2023 06:53:34 09/21/19 24 09/21/2023 CMP(C OMPRE HENSI VE METAB OLIC PANEL ) glucose 85 mg/dL 70-100 Not Available [facility] (Lab) [address], [place], [address], 09/22/2023 06:53:34 09/21/19 24 09/21/2023 CMP(C OMPRE HENSI VE METAB OLIC PANEL ) protein, total 6.9 g/dL 6.4-8. 3 Not Available [facility] (Lab) [address] [address], [place], [address], 09/22/2023 06:53:34 09/21/19 24 09/21/2023 CMP(C OMPRE HENSI VE METAB OLIC PANEL ) albumin 4.5 g/dL 3.5-5. 0 Not Available [facility] (Lab) [address] [facility] [address] [address], [place], [address], 09/22/2023 06:53:34 09/21/19 24 09/21/2023 CMP(C OMPRE HENSI VE METAB OLIC PANEL ) ALT 65 units /L 11-51 high Not Available [facility] (Lab) [address] [facility] [address] [address], [place], [address], 09/22/2023 06:53:34 09/21/19 24 09/21/2023 CMP(C OMPRE HENSI VE METAB OLIC PANEL ) alkaline phosphatase 47 units /L 34-104 Not Available [facility] (Lab) [address] [facility] [address], [place], [address], 09/22/2023 06:53:34 09/21/19 24 09/21/2023 CMP(C OMPRE HENSI VE METAB OLIC PANEL ) AST 32 units /L 13-39 Not Available [facility] (Lab) [address] [facility] [address], [place], [address], 09/22/2023 06:53:34 09/21/19 24 09/21/2023 CMP(C OMPRE HENSI VE METAB OLIC PANEL ) bilirubin, total 0.4 mg/dL 0.2-1. 2 Not Available [facility] (Lab) [address] [facility] [address], [place], [address], 09/22/2023 06:53:34 09/21/19 24 09/21/2023 TSH TSH 4.29 uIU/m L 0.30-5 .33 Not Available [facility] (Lab) [address] [facility], [place], [address], 09/22/2023 06:53:34 03/10/20 24 03/10/2024 CBC W/DIF F WBC 9.9 10'3/ uL 3.5-10 .5 Not Available [facility] (Lab) [address] [place], [address], 03/11/2024 14:37:59 03/10/20 24 03/10/2024 CBC W/DIF F RBC 5.01 10'6/ uL (based on docume nted legal sex) 4.30-5 .80 Not Available [facility] (Lab) [address], [place], [address], 03/11/2024 14:37:59 03/10/20 24 03/10/2024 CBC W/DIF F HGB 15.4 g/dL (based on docume nted legal sex) 13.0-1 7.5 Not Available [facility] (Lab) [address], [place], [address], 03/11/2024 14:37:59 03/10/20 24 03/10/2024 CBC W/DIF F HCT 46.7 % (based on docume nted legal sex) 38.0-5 0.0 Not Available [facility] (Lab) [address], [place], [address], 03/11/2024 14:37:59 03/10/20 24 03/10/2024 CBC W/DIF F MCV 93.2 fL 80.0-9 9.0 Not Available [facility] (Lab) [address], [place], [address], 03/11/2024 14:37:59 03/10/20 24 03/10/2024 CBC W/DIF F MCH 30.7 pg 27.0-3 4.0 Not Available [facility] (Lab) [address] , [place], [address], 03/11/2024 14:37:59 03/10/20 24 03/10/2024 CBC W/DIF F MCHC 33.0 g/dL 32.0-3 5.5 Not Available [facility] (Lab) [address], [place], [address], 03/11/2024 14:37:59 03/10/20 24 03/10/2024 CBC W/DIF F RDW 13.8 % 11.0-1 5.0 Not Available [facility] (Lab) [address] [facility], [place], [address], 03/11/2024 14:37:59 03/10/20 24 03/10/2024 CBC W/DIF F plt 269 10'3/ uL 150-40 0 Not Available [facility] (Lab) [address] [facility], [place], [address], 03/11/2024 14:37:59 03/10/20 24 03/10/2024 CBC W/DIF F MPV 10.6 fL 8.8-12 .1 Not Available [facility] (Lab) [address] [facility], [place], [address], 03/11/2024 14:37:59 03/10/20 24 03/10/2024 CBC W/DIF F NRBC's 0.0 % 0.0 Not Available [facility] (Lab) [address] [facility], [place], [address], 03/11/2024 14:37:59 03/10/20 24 03/10/2024 CBC W/DIF F absolute NRBCs 0.0 10'3/ uL no refere nce range establ ished Not Available [facility] (Lab) [address], [place], [address], 03/11/2024 14:37:59 03/10/20 24 03/10/2024 CBC W/DIF F neutrophils 56.3 % 34.0-7 3.0 Not Available [facility] (Lab) [address] [facility], [place], [address], 03/11/2024 14:37:59 03/10/20 24 03/10/2024 CBC W/DIF F lymphocytes 23.4 % 15.0-5 0.0 Not Available [facility] (Lab) [address] [facility], [place], [address], 03/11/2024 14:37:59 03/10/20 24 03/10/2024 CBC W/DIF F monocytes 14.9 % 1.0-15 .0 Not Available [facility] (Lab) [address], [place], [address], 03/11/2024 14:37:59 03/10/20 24 03/10/2024 CBC W/DIF F eosinophils 3.8 % 0.0-8. 0 Not Available [facility] (Lab) [address] [facility], [place], [address], 03/11/2024 14:37:59 03/10/20 24 03/10/2024 CBC W/DIF F basophils 1.1 % 0.0-2. 0 Not Available [facility] (Lab) [address], [place], [address], 03/11/2024 14:37:59 03/10/20 24 03/10/2024 CBC W/DIF F immature granulocytes 0.5 % no define d refere nce range Not Available [facility] (Lab) [address], [place], [address], 03/11/2024 14:37:59 03/10/20 24 03/10/2024 CBC W/DIF F absolute neutrophils 5.6 10'3/ uL 1.5-8. 0 Not Available [facility] (Lab) [address] [facility], [place], [address], 03/11/2024 14:37:59 03/10/20 24 03/10/2024 CBC W/DIF F absolute lymphocytes 2.3 10'3/ uL 1.0-4. 0 Not Available [facility] (Lab) [address] [facility] [address], [place], [address], 03/11/2024 14:37:59 03/10/20 24 03/10/2024 CBC W/DIF F absolute monocytes 1.5 10'3/ uL 0.2-1. 0 high Not Available [facility] (Lab) [address] [place], [address], 03/11/2024 14:37:59 03/10/20 24 03/10/2024 CBC W/DIF F absolute eosinophils 0.4 10'3/ uL 0.0-0. 6 Not Available [facility] (Lab) [address] [facility], [place], [address], 03/11/2024 14:37:59 03/10/20 24 03/10/2024 CBC W/DIF F absolute basophils 0.1 10'3/ uL 0.0-0. 3 Not Available [facility] (Lab) [address] [facility] [address], [place], [address], 03/11/2024 14:37:59 03/10/20 24 03/10/2024 CBC W/DIF F absolute immature granulocytes 0.1 10'3/ uL 0.00-0 .10 2023 5:40 AM: P indic ates parti al resul ts on a panel have been relea sed. Addit ional resul ts will follo w. 2023 5:40 AM: This resul t has been final verif ied. No addit ional or ashley ed resul ts are expec belia. Not Available [facility] (Lab) [address] [facility] [address] [address], [place], [address], 03/11/2024 14:37:59 03/10/20 24 03/10/2024 CMP(C OMPRE HENSI VE METAB OLIC PANEL ) sodium 145 mmol/ L 133-14 6 Not Available [facility] (Lab) [address] [facility] [address], [place], [address], 03/11/2024 14:38:00 03/10/20 24 03/10/2024 CMP(C OMPRE HENSI VE METAB OLIC PANEL ) potassium 3.8 mmol/ L 3.5-5. 1 Not Available [facility] (Lab) [address] [facility] [address], [place], [address], 03/11/2024 14:38:00 03/10/20 24 03/10/2024 CMP(C OMPRE HENSI VE METAB OLIC PANEL ) chloride 107 mmol/ L 98-107 Not Available [facility] (Lab) [address], [place], [address], 03/11/2024 14:38:00 03/10/20 24 03/10/2024 CMP(C OMPRE HENSI VE METAB OLIC PANEL ) carbon dioxide 30 mmol/ L 21-31 Not Available [facility] (Lab) [address] [facility] [address] [address], [place], [address], 03/11/2024 14:38:00 03/10/20 24 03/10/2024 CMP(C OMPRE HENSI VE METAB OLIC PANEL ) anion gap 8 mmol/ L 4-13 Not Available [facility] (Lab) [address], [place], [address], 03/11/2024 14:38:00 03/10/20 24 03/10/2024 CMP(C OMPRE HENSI VE METAB OLIC PANEL ) blood urea nitrogen 19 mg/dL 7-25 Not Available [facility] (Lab) [address], [place], [address], 03/11/2024 14:38:00 03/10/20 24 03/10/2024 CMP(C OMPRE HENSI VE METAB OLIC PANEL ) creatinine 1.03 mg/dL 0.60-1 .30 Not Available [facility] (Lab) [address], [place], [address], 03/11/2024 14:38:00 03/10/20 24 03/10/2024 CMP(C OMPRE HENSI VE METAB OLIC PANEL ) egfrcr (CKD-epi 2020) 75 mL/mi n/1.7 3_m2 >=60 Not Available [facility] (Lab) [address], [place], [address], 03/11/2024 14:38:00 03/10/20 24 03/10/2024 CMP(C OMPRE HENSI VE METAB OLIC PANEL ) calcium 11.1 mg/dL 8.3-10 .5 high Not Available [facility] (Lab) [address] [facility], [place], [address], 03/11/2024 14:38:00 03/10/20 24 03/10/2024 CMP(C OMPRE HENSI VE METAB OLIC PANEL ) glucose 87 mg/dL 70-100 Not Available [facility] (Lab) [address] [facility] [address], [place], [address], 03/11/2024 14:38:00 03/10/20 24 03/10/2024 CMP(C OMPRE HENSI VE METAB OLIC PANEL ) protein, total 7.3 g/dL 6.4-8. 3 Not Available [facility] (Lab) [address] [facility], [place], [address], 03/11/2024 14:38:00 03/10/20 24 03/10/2024 CMP(C OMPRE HENSI VE METAB OLIC PANEL ) albumin 4.8 g/dL 3.5-5. 0 Not Available [facility] (Lab) [address] [facility], [place], [address], 03/11/2024 14:38:00 03/10/20 24 03/10/2024 CMP(C OMPRE HENSI VE METAB OLIC PANEL ) ALT 76 units /L 11-51 high Not Available [facility] (Lab) [address] [place], [address], 03/11/2024 14:38:00 03/10/20 24 03/10/2024 CMP(C OMPRE HENSI VE METAB OLIC PANEL ) alkaline phosphatase 47 units /L 34-104 Not Available [facility] (Lab) [address] [place], [address], 03/11/2024 14:38:00 03/10/20 24 03/10/2024 CMP(C OMPRE HENSI VE METAB OLIC PANEL ) AST 34 units /L 13-39 Not Available [facility] (Lab) [address] [facility], [place], [address], 03/11/2024 14:38:00 03/10/20 24 03/10/2024 CMP(C OMPRE HENSI VE METAB OLIC PANEL ) bilirubin, total 0.4 mg/dL 0.2-1. 2 Not Available [facility] (Lab) [address] [facility], [place], [address], 03/11/2024 14:38:00 03/10/20 24 03/10/2024 MARIANNE TIN / IRON / TRANS MARIANNE N / TIBC iron 100 ug/dL 60-175 Not Available [facility] (Lab) [address] [facility] [address], [place], [address], 03/11/2024 14:38:00 03/10/20 24 03/10/2024 MARIANNE TIN / IRON / TRANS MARIANNE N / TIBC transferrin 292 mg/dL 200-36 0 Not Available [facility] (Lab) [address] [facility], [place], [address], 03/11/2024 14:38:00 03/10/20 24 03/10/2024 MARIANNE TIN / IRON / TRANS MARIANNE N / TIBC ferritin 125.5 NG/mL 24.0-3 36.0 Not Available [facility] (Lab) [address] [facility], [place], [address], 03/11/2024 14:38:00 03/10/20 24 03/10/2024 MARIANNE TIN / IRON / TRANS MARIANNE N / TIBC TIBC 409 ug/dL 250-45 0 Not Available [facility] (Lab) [address] [facility], [place], [address], 03/11/2024 14:38:00 03/10/20 24 03/10/2024 MARIANNE TIN / IRON / TRANS MARIANNE N / TIBC iron saturation 24 % 20-55 Not Available [facility] (Lab) [address] [facility] [address], [place], [address], 03/11/2024 14:38:00 03/10/20 24 03/10/2024 TESTO STERO NE, TOTAL testosterone , total 433 NG/dL 200-80 0 Not Available [facility] (Lab) [address] [facility] [address], [place], [address], 03/11/2024 14:38:01 03/10/20 24 03/10/2024 PSA TOTAL (DIAG NOSTI C) PSA, total 2.05 NG/mL 0.00-4 .00 This assay was perfo rmed using [employer] an Coult er reage nts and test kits. Value s obtai johan with other assay metho ds or kits canno t be used inter ashley eably . Not Available [facility] (Lab) [address], [place], [address], 03/11/2024 14:38:01 03/10/20 24 03/10/2024 VITAM IN B12 / FOLAT E PANEL vitamin B12 287 pg/mL 180-91 4 Carol l Range : 180-9 14 pg/mL . Indet ermin ate Range : 145-1 80 pg/mL . Defic ient Range : <=145 pg/mL . Not Available [facility] (Lab) [address], [place], [address], 03/11/2024 14:38:02 03/10/20 24 03/10/2024 VITAM IN B12 / FOLAT E PANEL folate, serum 11.9 NG/mL 6.0-20 .0 Not Available [facility] (Lab) [address] [place], [address], 03/11/2024 14:38:02 12/28/19 23 12/26/2022 XR, chest , 2 view No observ ation record ed. [address], [place], [address], 12/28/2022 23:53:21 12/30/19 23 12/29/2022 XR, chest , 2 view No observ ation record ed. [address], [place], [address], 12/30/2022 12:39:02 01/01/20 23 12/29/2022 XR, chest , 2 view No observ ation record ed. [facility] [address], [place], [address], 12/31/2022 23:37:51 03/19/20 23 03/18/2023 imagi ng/di agnos tic resul t No observ ation record ed. [facility] [address], [place], [address], 03/20/2023 01:08:09 Result Notes None recorded. Problems Name Problem SNOMED Code Status Onset Date Resolution Date Notes Provider Name and Address Organization Details Recorded Time Left rotator cuff strain Active 2023 Remi Hernandez MD [address] [place], [address] , [facility] 4 16:06:34 Coronary arteriosclero sis 03360877 Active Not Available [facility] 2 11:56:31 Hypertensive disorder 43657787 Active Not Available [facility] 2 11:56:31 Hyperlipidemi a 84386020 Active Not Available [facility] 2 11:56:31 Benign prostatic hyperplasia 606658407 Active Not Available [facility] 2 11:56:31 Viral syndrome 444649181 Active Not Available [facility] 2 11:56:31 Adverse reaction to drug 70822145 Active Not Available [facility] 2 11:56:31 Posterior rhinorrhea 10907271 Active 2019 Not Available [facility] 2 11:56:31 Fatigue 11683978 Active 2019 Not Available [facility] 2 11:56:31 Cervical lymphadenitis 4192414 Active 2019 Not Available [facility] 2 11:56:31 Dyspnea 989134370 Active 2019 Not Available [facility] 2 11:56:31 Glaucoma 55250521 Active 2019 Not Available [facility] 2 11:56:31 Adult health examination Active 2020 Not Available [facility] 2 11:56:31 Swollen abdomen 79116080 Active 2020 Not Available [facility] 2 11:56:31 Hyperglycemia 32042579 Active 2021 Not Available [facility] 2 11:56:31 Nodule of lung 750468499 Active 2021 Not Available [facility] 2 11:56:31 Bradycardia 04204063 Active 2021 Not Available [facility] 2 11:56:31 Hypocalcemia 9043358 Active 2022 Remi Hernanedz MD [address] [place], [address] , [facility] 3 17:29:56 Cardiac pacemaker in situ 816894598 Active 2022 Remi Hernandez MD [address] [place] [address], [address] , [facility] 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 3 15:22:37 Problem Notes None recorded. Procedures Surgical History None recorded. Imaging Results Imaging Date Name Status LastModified by Organiz ation Details LastModified Time 12/26/2022 XR, chest, 2 view completed [address] [place] [address], [address], 12/28/2022 23:53:21 12/29/2022 XR, chest, 2 view completed [address], [place], [address], 12/30/2022 12:39:02 12/29/2022 XR, chest, 2 view completed [place] [address], [place], [address], 12/31/2022 23:37:51 03/18/2023 imaging/diag nostic result completed [facility] [address], [place], [address], 03/20/2023 01:08:09 Procedure Notes None recorded. Medical Equipment None Reported. Allergies No known drug allergies Medications Name Sig Start Date Stop Date Status Note LastModified by Organization Details LastModified Time Natrum Muriaticum 200 1m 2d; 12x bid 02/28 completed Not Available Not Available Not Available Orthomega 2 qd 03/10 completed Not Available Not Available Not Available losartan potassium 25 mg tabs 02/28 completed Not Available Not Available Not Available Orthomega 2 qd 2022 active Not Available Not Available Not Avai lable compounded medication 10 drops BID 09/06 completed Not Available Not Available Not Available [facility] Zyme 2 tid before meals 08/28 completed Not Available Not Available Not Available Silica (Silicea) 12x 3 tid 10/15 completed Not Available Not Available Not Available compounded medication 10 glob bid 02/20 completed Not Available Not Available Not Available metoprolol succinate er 50 mg tb24 02/28 completed Not Available Not Available Not Available rosuvastati n calcium 40 mg tabs 09/01 completed Not Available Not Available Not Available OrthoBiotic 2/d 08/28 completed Not Available Not Available Not Available [facility]o[employer]iotic 2 qd 2018 active Not Available Not Available Not Avai lable finasteride 5 mg tabs 02/28 completed Not Available Not Available Not Available amlodipine besylate 10 mg tabs 02/28 completed Not Available Not Available Not Available alprazolam 0.5 mg tabs 08/28 completed Not Available Not Available Not Available compounded medication 10 drops BID 09/06 completed Not Available Not Available Not Available Viracid Take as directed. 2013 active Not Available Not Available Not Avai lable losartan 50 mg tablet Take 1 Tablet (50 mg) by mouth daily at bedtime. active Not Available Not Available No t Available amoxicillin 500 mg capsule 01/05 completed Not Available Not Available Not Available latanoprost 0.005 % eye drops active Not Available Not Available Not Available aspirin 325 mg tablet Take 1 tablet every day by oral route. 10/15 completed Not Available Not Available Not Available ibuprofen 800 mg tablet 01/05 completed Not Available Not Available Not Available metoprolol succinate ER 50 mg tablet,exte nded release 24 hr 01/05 completed Not Available Not Available Not Available alprazolam 0.5 mg tablet active Not Available Not Available Not Available Vitamin C 1,000 mg tablet Take 1 tablet every day by oral route. 02/20 completed Not Available Not Available Not Available amlodipine 10 mg tablet Take 1 tablet every day by oral route. active Not Available Not Available No t Available cephalexin 500 mg capsule active Not Available Not Available Not Available losartan 25 mg tablet Take 1 Tablet (25 mg) by mouth daily. 01/05 completed Not Available Not Available Not Available nitroglycer in 0.4 mg sublingual tablet 02/20 completed Not Available Not Available Not Available lisinopril 5 mg tablet Take 1 tablet every day by oral route. 10/15 completed Not Available Not Available Not Available finasteride 5 mg tablet Take 1 tablet every day by oral route. active Not Available Not Available No t Available amoxicillin 875 mg-potassiu m clavulanate 125 mg tablet Take 1 tablet every 12 hours by oral route. 02/28 completed Not Available Not Available Not Available ezetimibe 10 mg tablet active Not Available Not Available Not Available rosuvastati n 20 mg tablet Take 1 tablet every day by oral route. 04/16 completed Not Available Not Available Not Available rosuvastati n 40 mg tablet active Not Available Not Available Not Available Fish Oil 02/28 completed Not Available Not Available Not Available Livalo 4 mg tablet active Not Available Not Available Not Available magnesium citrate 100 mg capsule Take 3 capsules every day by oral route. 02/20 completed Not Available Not Available Not Available Vitals Date Recorded Body height Body mass index (BMI) Body weight Body temperature Heart rate Systolic blood pressure Diastolic blood pressure Provider Name and Address Organization Details Last Updated DateTime 3 172.72 cm 32.1 kg/m2 83650.9 9 g 98.3 [degF] 50 /min 138 mm[Hg] 78 mm[Hg] Jennifer [facility] 3 16:02:04 Date Recorded Body height Body mass index (BMI) Body weight Body temperature Heart rate Systolic blood pressure Diastolic blood pressure Provider Name and Address Organization Details Last Updated DateTime 3 172.72 cm 31.6 kg/m2 05284.7 8 g 97.7 [degF] 76 /min 164 mm[Hg] 94 mm[Hg] Jennifer [facility] 3 14:23:25 Date Recorded Body height Body mass index (BMI) Body weight Body temperature Heart rate Systolic blood pressure Diastolic blood pressure Provider Name and Address Organization Details Last Updated DateTime 3 172.72 cm 32.1 kg/m2 47625.2 7 g 97.4 [degF] 88 /min 121 mm[Hg] 76 mm[Hg] Jennifer [facility] 3 15:59:20 Date Recorded Body height Body temperature Heart rate Body mass index (BMI) Body weight Systolic blood pressure Diastolic blood pressure Provider Name and Address Organization Details Last Updated DateTime 4 172.72 cm 98.2 [degF] 73 /min 32.8 kg/m2 68351.8 g 123 mm[Hg] 81 mm[Hg] Nenita Collins [facility] 4 16:31:37 Date Recorded Body height Body mass index (BMI) Body weight Body temperature Heart rate Systolic blood pressure Diastolic blood pressure Provider Name and Address Organization Details Last Updated DateTime 4 172.72 cm 33.5 kg/m2 03881.0 4 g 97.5 [degF] 70 /min 144 mm[Hg] 77 mm[Hg] Jennifer [facility] 4 14:45:00 Social History Question Answer Notes LastModified by Organizat ion Details LastModified Time Tobacco Smoking Status Former Smoker hasn't smoked since ae 26 Not Available [facility] 05/01/2020 03:29:37 What Is Your Level Of Alcohol Consumption? Occasional Couple Glasses Of Wine Per Week [id number] Information not available 05/01/2020 What Is Your Level Of Caffeine Consumption? Heavy Coffee Every Day [id number] Information not available 05/01/2020 How Much Tobacco Do You Chew? None [id number] Information not available 05/01/2020 What Type Of Diet Are You Following? GLUTENFREE For The Most Part, Eats Chicken And Fish [id number] Information not available 05/01/2020 Hard Of Hearing Or Deaf In One Or Both Ears? No Information not available 09/14/2013 Legally Blind In One Or Both Eyes? No Information not available 09/14/2013 Marital Status Information not available 08/16/2013 Seat Belts Used Routinely Yes Information not available 09/14/2013 Smoke Alarm In Home Yes Information not available 09/14/2013 General Stress Level Low Information not available 08/16/2013 Do You Use Sunscreen Routinely? No [id number] Information not available 05/01/2020 Sex: Unknown Functional Status Question Answer Note LastModified by [employer] Details LastModified Time What is your exercise level? Occasional usually more heavy when weather is nice [id number] Information not available 05/01/2020 Mental Status None recorded. Family History Relationship Description Onset Age of this Age Resolved Age Notes LastModified by Organization Details LastModified Time Mother Malignant neoplastic disease 79 lung cancer [email or web address] Not available 10/10/2015 18:33:06 Father Coronary arterioscler osis 73 [email or web address] Not available 2015 18:33:06 Brother Myocardial infarction 59 [email or web address] Not available 10/09 18:33:06 Notes:a couple of mother's john ochoa young of heart attacks Medical History Condition Response Coronary Artery Disease Y Gout N Kidney Stones N Blood Diseases N Hyperthyroidism N Hypothyroidism N COPD N Depression N Developmental or Behavioral Disorders N Anxiety Disorder N Muscle, Joint, or Bone Problems N Vision or Eye Problems N Arthritis N Head Injury/Concussion N Congenital Anomalies N Cancer N Stroke N ADHD N Bladder or Kidney Problems N Hospital Admission other than N High Cholesterol Y Liver Disease N Headaches N Fibromyalgia N Kidney Disease N Ear or Hearing Problems N Thyroid Problems N Skin Problems N Anemia N Constipation N Mental Illness N Diabetes N Bedwetting N Seizures/Epilepsy N Heart Problems/Murmur N Tuberculosis N Diverticulitis N Asthma N Allergies N Reflux/GERD N Heart Disease N Pulmonary Embolism N Hypertension Y Chicken Pox N Autism Spectrum Disorder (ASD) N Osteoporosis N Immunizations Vaccine Type Date Status Note Provider Nam e and Address Organization Details Recorded Time COVID-19, mRNA, LNP-S, PF, 100 mcg/0.5mL dose or 50 mcg/0.25mL dose 08/16/2020 completed GALINA [facility] 09/01/2022 16:01:08 COVID-19, mRNA, LNP-S, PF, 100 mcg/0.5mL dose or 50 mcg/0.25mL dose 09/28/2020 completed [facility] 09/01/2022 16:01:09 COVID-19, mRNA, LNP-S, PF, 100 mcg/0.5mL dose or 50 mcg/0.25mL dose 04/08/2022 completed GALINA Booth [facility] 09/01/2022 16:01:09 COVID-19, mRNA, LNP-S, bivalent, PF, 50 mcg/0.5 mL or 25mcg/0.25 mL dose 04/08/2022 completed Jennifer connolly [place] Lauren [facility] 09/01/2022 16:01:09 Past Encounters Encounter ID Performer Location Encounter Start Date Encounter Closed Date Diagnosis/Indication Diagnosis SNOMED-CT Code Diagnosis ICD10 Code Diagnosis Note [id number] Main Office [address] [place] [address] 08/16/2013 13:35:28 08/16/2013 19:02:03 Coronary arteriosclerosis 73717869 Hypertensive disorder 51004673 Hyperlipidemia 23196805 Benign pro static hyperplasia 543582928 [id number] Remi Hernandez MD Main Office [address] [place] [address] 09/14/2013 13:53:54 09/14/2013 15:02:44 Viral syndrome 626233812 [id number] [facility] Main Office [address] [place] [address] 08/29/2014 13:23:00 08/29/2014 16:17:07 Coronary arteriosclerosis 53316048 Benign pro static hyperplasia 929714499 Hyperlipidemia 38705066 Hypertensive disorder 54398866 Viral syndrome 272410651 Adult heal th examination [id number] Gavin Doughertyliliyaroselyn Main Office [address] [place] [address] 10/10/2015 17:46:09 10/10/2015 19:02:35 Adult health examination 025645957 Z00.01 Coronary arteriosclerosis 85538605 I25.10 Hypertensive disorder 38 087521 I10 Benign pro static hyperplasia 156775326 D29.1 Hyperlipidemia 93967704 E78.5 Adverse re action to drug 93672078 T88.7XXA cough after Lisinopril [id number] Remi Hernandez MD Main Office [address] [place] [address] 03/13/2016 13:24:41 03/13/2016 15:24:07 Hypertensive disorder 02228827 I10 Coronary arteriosclerosis 64712465 I25.10 Hyperlipidemia 30039731 E78.5 Viral syndrome 404686580 B34.9 Benign pro static hyperplasia 035333755 D29.1 Cardiovasc ular stress test abnormal 148765323 R94.39 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 35767590 I21.19 [id number] Remi Hernanedz MD Main Office [address] [place] [address] 10/13/2016 17:47:46 10/13/2016 19:29:40 Hypertensive disorder 87616198 I10 Coronary arteriosclerosis 10031170 I25.10 Hyperlipidemia 07058529 E78.5 Viral syndrome 919642796 B34.9 Benign pro static hyperplasia 174804658 D29.1 Cardiovasc ular stress test abnormal 022272756 R94.39 [id number] Remi Hernandez MD Main Office [address] [place] [address] 02/05/2017 16:21:32 02/05/2017 17:19:27 Paronychia of finger 136484073 L03.019 [id number] Remi Hernandez MD Main Office [address] [place] [address] 04/16/2017 10:49:56 04/16/2017 12:15:59 Hypertensive disorder 14548166 I10 Benign pro static hyperplasia 742172752 N40.1 Viral syndrome 191786520 B34.9 Coronary arteriosclerosis 37362831 I25.10 Hyperlipidemia 00086353 E78.5 [id number] Remi Hernandez MD Main Office [address] [place] [address] 10/15/2017 11:16:57 10/15/2017 12:39:46 Hypertensive disorder 34323526 I10 Benign pro static hyperplasia 507823117 N40.1 Viral syndrome 925337918 B34.9 Coronary arteriosclerosis 60895822 I25.10 Hyperlipidemia 91913488 E78.5 Glaucoma 89594470 H40.9 [id number] Remi Hernandez MD Main Office [address] [place] [address] 05/12/2018 16:46:40 05/12/2018 18:12:57 Hypertensive disorder 52619576 I10 Benign pro static hyperplasia 072215185 N40.1 Viral syndrome 111217659 B34.9 Coronary arteriosclerosis 60910347 I25.10 Hyperlipidemia 99578038 E78.5 Glaucoma 78406319 H40.9 Injury of great toenail 347825196 S99.921A [id number] Remi Hernandez MD Main Office [address] [place] [address] 06/17/2019 16:01:24 06/17/2019 18:04:49 Acute sinusitis 95466686 J01.90 [id number] Remi Hernandez MD Main Office [address] [place] [address] 29212-244 3 09/02/2019 09:30:28 09/02/2019 10:45:51 Hypertensive disorder 71137553 I10 Benign pro static hyperplasia 700203222 N40.1 Viral syndrome 328590755 B34.9 Coronary arteriosclerosis 31637207 I25.10 Hyperlipidemia 56870907 E78.5 Glaucoma 02625790 H40.9 Posterior rhinorrhea 758 73666 R09.82 [id number] Remi Hernandez MD Main Office [address] [place] [address] 67268-050 3 12/27/2019 17:27:32 12/27/2019 18:45:44 Fatigue 04604201 R53.83 Dyspnea 767681689 R06.00 Cervical lymphadenitis 2509178 I88.9 [id number] Remi Hernandez MD Main Office [address] [place] [address] 13708-771 3 02/29/2020 15:53:59 02/29/2020 17:21:53 Fatigue 70054214 R53.83 Dyspnea 346452499 R06.00 Hypertensive disorder 38 797984 I10 Benign pro static hyperplasia 123630689 N40.1 Viral syndrome 306361430 B34.9 Coronary arteriosclerosis 91412347 I25.10 Hyperlipidemia 12873977 E78.5 Glaucoma 30450491 H40.9 Posterior rhinorrhea 758 02453 R09.82 [id number] Remi Hernandez MD Main Office [address] [place] [address] 82757-914 3 08/28/2020 13:59:05 08/28/2020 15:28:19 Fatigue 72216133 R53.83 Dyspnea 492710404 R06.00 Hypertensive disorder 38 045591 I10 Benign pro static hyperplasia 526902843 N40.1 Viral syndrome 211575311 B34.9 Coronary arteriosclerosis 84882221 I25.10 Hyperlipidemia 04072409 E78.5 Glaucoma 54666841 H40.9 Posterior rhinorrhea 758 95095 R09.82 [id number] Remi Hernandez MD Main Office [address] [place] [address] 73417-543 3 02/28/2021 11:03:20 02/28/2021 12:29:50 Adult health examination 940388217 Z00.01 Swollen abdomen 26382611 R14.0 Fatigue 13107810 R53.83 Dyspnea 229559950 R06.00 Hypertensive disorder 38 530345 I10 Benign pro static hyperplasia 999603424 N40.1 Coronary arteriosclerosis 24340376 I25.10 Hyperlipidemia 71054963 E78.5 Glaucoma 05984384 H40.9 Posterior rhinorrhea 758 74626 R09.82 Vitamin D deficiency 347 26790 E55.9 [id number] Remi Hernandez MD Main Office [address] [place] [address] 22594-800 3 08/28/2021 11:55:16 08/28/2021 13:15:32 Vitamin D deficiency 35085578 E55.9 Adult heal th examination 216199298 Z00.01 Fatigue 50143359 R53.83 Dyspnea 341824142 R06.00 Hypertensive disorder 38 588391 I10 Benign pro static hyperplasia 227648425 N40.1 Coronary arteriosclerosis 50527990 I25.10 Hyperlipidemia 57505526 E78.5 Glaucoma 12190808 H40.9 Posterior rhinorrhea 758 29812 R09.82 Hyperglycemia 68398070 R 73.9 Nodule of lung 530127614 R91.1 [id number] Remi Hernandez MD Main Office [address] [place] [address] 72145-211 3 02/20/2022 14:59:19 02/20/2022 17:16:11 Bradycardia 78722227 R00.1 Vitamin D deficiency 347 27762 E55.9 Fatigue 60099712 R53.83 Dyspnea 886677505 R06.00 Hypertensive disorder 38 592557 I10 Benign pro static hyperplasia 039515886 N40.1 Coronary arteriosclerosis 34680414 I25.10 Hyperlipidemia 93136355 E78.5 Glaucoma 66906381 H40.9 Posterior rhinorrhea 758 03312 R09.82 Hyperglycemia 77833710 R 73.9 Hypocalcemia 4283785 E83 .51 [id number] Remi Hernandez MD Main Office [address] [place] [address] 43221-974 3 09/01/2022 15:31:51 09/01/2022 17:37:10 Bradycardia 14036621 R00.1 Vitamin D deficiency 347 65566 E55.9 Hyperglycemia 68338947 R 73.9 Fatigue 55646065 R53.83 Dyspnea 484615587 R06.00 Hypertensive disorder 38 113543 I10 Benign pro static hyperplasia 976891287 N40.1 Coronary arteriosclerosis 26933695 I25.10 Hyperlipidemia 95492726 E78.5 Glaucoma 27107168 H40.9 Posterior rhinorrhea 758 22623 R09.82 Hypocalcemia 7667651 E83 .51 [id number] Remi Hernandez MD Main Office [address] [place] [address] [place] [address]-194 3 01/05/2023 14:00:21 01/05/2023 15:27:00 Complete atrioventricular block 54738062 I44.2 Cardiac pa cemaker in situ 368173920 Z95.0 Coronary arteriosclerosis 47945542 I25.10 [id number] Remi Hernandez MD Main Office [address] [place] [address] 67737-391 3 03/09/2023 15:57:38 03/09/2023 17:11:42 Complete atrioventricular block 43450398 I44.2 Cardiac pa cemaker in situ 692759717 Z95.0 Coronary arteriosclerosis 22770836 I25.10 [id number] Remi Hernandez MD Main Office [address] [place] [address] 56110-933 3 09/07/2023 16:09:22 09/07/2023 18:13:46 Adult health examination 028349347 Z00.01 Bradycardia 21207102 R00 .1 Vitamin D deficiency 347 02691 E55.9 Hyperglycemia 22301620 R 73.9 Fatigue 16426896 R53.83 Dyspnea 548205060 R06.00 Hypertensive disorder 38 916498 I10 Benign pro static hyperplasia 338091664 N40.1 Coronary arteriosclerosis 00987309 I25.10 Hyperlipidemia 36475347 E78.5 Glaucoma 15109381 H40.9 Posterior rhinorrhea 758 43030 R09.82 Hypocalcemia 2358874 E83 .51 [id number] Remi Hernandez MD Main Office [address] [place] [address] 03/10/2024 13:59:42 03/10/2024 16:12:40 Fatigue 54758784 R53.83 Left rotat or cuff strain 1541434208 1118871 S46.012A Health Concerns Section Related Observation LastModified by Organization Detai ls LastModified Time None Recorded Concern Status LastModified by Organization Details LastModified Time None Recorded Advance Directives Directive None Recorded Payers Encounter Date Sequence Insurance Name Policy Number Policy Cardoza Covered Member ID Cardoza Member ID Guarantor Name 09/01/2022 1 [employer] (MEDICARE REPLACEMENT PPO) [id number] Gaston Pat [id number] Nusrat Pat 01/05/2023 1 [employer] (MEDICARE REPLACEMENT PPO) [id number] Gaston Wong Bi [id number] Nusrat Gongl Bi 03/09/2023 1 [employer] (MEDICARE REPLACEMENT PPO) [id number] Gaston Wong Bi [id number] Nusrat Gongl Bi 09/07/2023 1 [employer] (MEDICARE REPLACEMENT PPO) [id number] Gaston Wong Bi [id number] Nusratisabela Gongl Bi 03/10/2024 1 [employer] (MEDICARE REPLACEMENT PPO) [id number] Gaston Wong Bi [id number] Nusrat Diel Bi Notes Date Note Type Note Provider Name and Address Organization Details Recorded Time 09/01/2022 text/html feeling my age.Balcony Worker Dr. Daniel.Not recommending angiography.no dyspnea or chest pain.Off Metoprolol and no pacemaker.Urologist Dr. Durand PSA was fine Remi Hernandez MD [address] [place], [address], [facility] 09/01/2022 17:31:09 01/05/2023 text/html Emergency pacema ker. 12/29/2022radycardia down to 47/minute.Complete heart block (CMS/HCC) (HCC) (Primary Dx);Coronary artery disease involving three affiliated coronary artery of three affiliated heart without angina pectoris;Sinus node dysfunction (CMS/HCC) (HCC);Essential hypertension;Mixed hyperlipidemia;Chronic fatigue syndrome; Balcony Worker Madhu Daniel is planning angiogram, and has hinted about possible bypass since could not be stented in past. Remi Hernandez MD [address] [place], [address], [facility] 01/05/2023 15:24:29 03/09/2023 text/html Negative pacemak er check. Inserted 12/29/2022 - less dyspnea. Subtle improvement in energy levels. Able to do more lifting around the house. Stopped biting his nails which had been a lifelong habit.Ventricular pacing is at 94%.Lesion R sabianism. Remi Hernandez MD [address] [place], [address], [facility] 03/09/2023 17:09:43 09/07/2023 text/html Feels stable.Hea rt about same.Balcony Worker Madhu Broderick is leaving. Good reports on his pacemaker.Not demented.Soy Lecithin.Cyruta plusCardioplusPSA 2-4 Valdo in [place] is the urologist. On finasteride Remi Hernandez MD [address] [place], [address], [facility] 09/07/2023 18:12:47 03/10/2024 text/html TiredL shoulder pain deltoid area. Tripped and fell forward on outstretched L hand but hurt shoulder. < Remi Hernandez MD [address] [facility], [place], [address], [facility] 03/10/2024 16:09:49
--- OUTSIDE RECORDS SUMMARY | 2024-09-01 00:09 | XMS_ITS | Clinical Summary ---
Author Organization [facility] [address] Address [address] [place] [address] Care Team Providers Care Sales Developer Name Role Phone Remi Hernandez MD Primary Care Provider [phone] Allergies No known active allergies Medications finasteride (PROSCAR) 5 mg tablet take 1 tablet (5MG) by oral route every day 30 0 02/13/2011 Active magnesium citrate 100 mg tablet 100 mg. 0 0 05/07/2015 Active coenzyme Q10 200 mg capsule Take 1 capsule (200 mg total) by mouth daily Active latanoprost (XALATAN) 0.005 % ophthalmic solution 01/20/2023 Active nitroglycerin (NITROSTAT) 0.4 mg SL tabletIndicatio ns:Coronary artery disease involving miccosukee coronary artery of miccosukee heart without angina pectoris Place 1 tablet (0.4 mg total) under the tongue every 5 (five) minutes as needed for chest pain May take up to 3 tablets. 25 tablet 1 04/07/2023 Active aspirin 81 mg enteric coated tablet Take 1 tablet (81 mg total) by mouth daily Active losartan (COZAAR) 50 mg tablet Take 1 tablet (50 mg total) by mouth daily 04/19/2024 Active amLODIPine (NORVASC) 10 mg tablet Take 1 tablet (10 mg total) by mouth daily 30 tablet 2 07/14/2024 Active rosuvastatin (CRESTOR) 40 mg tablet Take 1 tablet (40 mg total) by mouth daily 90 tablet 2 07/15/2024 Active ezetimibe (ZETIA) 10 mg tablet TAKE ONE TABLET BY MOUTH ONCE DAILY 90 tablet 07/29/2024 Active Active Problems Problem Noted Date Diagnosed Date Nonrheumatic aortic valve stenosis 08/02/2024 Hospital discharge follow-up 01/28/2023 Cardiac pacemaker in situ 12/29/2022 Overview (12/29/2022): Biotronik Edora Dual Pacemaker. Dx; CHB. DOI 12/29/2022-Fleissner. Hernandez. Biotronik remote monitoring. Complete heart block 12/26/2022 Sinus node dysfunction 04/17/2022 Bradycardia 04/17/2022 Mobitz type I Wenckebach atrioventricular block 04/17/2022 Mixed hyperlipidemia 08/27/2021 PVC's (premature ventricular contractions) 08/27 SPIVEY (dyspnea on exertion) 02/04/2018 S/P coronary artery stent placement 07/30/2017 Chest pain 02/10/2017 Coronary artery disease invo lving miccosukee coronary artery of miccosukee heart without angina pectoris 02/10/2017 Essential hypertension 02/10/2017 Chronic fatigue syndrome 04/04/2016 Overview (10/02/2016): Chronic fatigue Muscle pain 10/09/2014 Overview (10/02/2016): Myalgia Resolved Problems Problem Noted Date Diagnosed Date Resolved Date Dyslipidemia 02/10/2017 08/27/2021 Status post coronary artery stent placement 01/31/2016 08/22/2022 Overview (10/03/2016): S/P coronary artery stent placement Encounters Date Type Department Care Team Description 08/26/2024 Telephone [facility] Medical [facility] Cardiology [address] [facility] [address] [place] [phone] Becky Gilman MD Prior Auth 08/17/2024 Telephone [facility] Cardiology [address] [facility] [address] [place] [phone] Becky Gilman MD 08/17/2024 Results Follow-Up [facility] Cardiology [address] [facility] [address] [place] [phone] Becky Gilman MD 08/12/2024 10:15 AM [facility] Ancillary Procedure [facility] Cardiology at [address] [place] [address] Coronary artery disease involving miccosukee coronary artery of miccosukee heart without angina pectoris; Cardiac pacemaker in situ; Nonrheumatic aortic valve stenosis 08/02/2024 8:00 AM FLAGMAN Office Visit [facility] Cardiology at [address] [place] [address] Becky Gilman MD Coronary artery disease involving miccosukee coronary artery of miccosukee heart without angina pectoris (Primary Dx); Essential hypertension; Cardiac pacemaker in situ; Mixed hyperlipidemia; Nonrheumatic aortic valve stenosis 07/14/2024 Telephone [facility] Cardiology [address] [place] [phone] Becky Gilman MD Med Refill 06/30/2024 Orders Only [facility] Cardiology [address] [place] [phone] Becky Gilman MD Cardiac pacemaker in situ (Primary Dx); Complete heart block (HCC) 06/14/2024 7:00 AM FLAGMAN Ancillary Procedure [facility] Cardiology [address] [place] [phone] Cardiac pacemaker in situ (Primary Dx); Complete heart block (HCC); Sinus node dysfunction (HCC) from Last 3 Months Medical History Medical History Date Comments Chronic coronary artery disease Coronary Artery Disease Hx Other Medical hld Hypertension Hypertension Hx Other Medical ASA with small possible PFO Family History Medical History Relation Name Comments Coronary artery disease Father Lung cancer Mother Relation Name Status Comments Father (Age 73) Mother (Age 79) Social History Tobacco Use Types Packs/Day Years Used Date Smoking Tobacco: Former Smokeless Tobacco: Never Tobacco Cessation:Counseling Given: Not Answered Alcohol Use Standard Drinks/Week Comments Yes 0 (1 standard drink = 0.6 oz pur e alcohol) Sex and Gender Information Value Date Recorded Sex Assigned at Not on file Legal Sex Male 7:12 PM FLAGMAN Gender Identity Not on file Sexual Orientation Not on file Obstetrics History Last Filed Vital Signs Vital Sign Reading Time Taken Comments Blood Pressure 138/88 08/02/2024 7:57 AM FLAGMAN Pulse 66 08/02/2024 7:57 AM FLAGMAN Temperature - - Respiratory Rate 12 02/10/2017 2:35 PM CDT Oxygen Saturation 96% 08/02/2024 7:57 AM FLAGMAN Inhaled Oxygen Concentration - - Weight 99.8 kg (220 lb) 08/02/2024 7:57 AM FLAGMAN Height 172.7 cm (5' 8 ) 08/02/2024 7:57 AM [facility]MAN Body Mass Index 33.45 08/02/2024 7:57 AM [facility]MAN Plan of Treatment Health Maintenance Due Date Last Done Comments Depression Screening 1945 Fall Risk Assessment 1945 Hepatitis C Screening 1945 DTaP/Tdap/Td Vaccine (1 - Tdap) 1957 Hepatitis B Screening 1964 Pneumococcal vaccine 65+ (1 of 1 - PCV) 1996 Zoster Vaccine (1 of 2) 1996 Abdominal Aortic Aneurysm (A AA) Screen 2011 Well Visit 65+ 2011 Covid-19 Vaccine (5 - 2023-2 5 season) 2024 04/08/2022, 09/28/2020, 09/17/2020, Additional history exists Influenza Vaccine (#1) 2024 Procedures Procedure Name Priority Date/Time Associated Diagnosis Comments TRANSTHORACIC ECHO (TTE) COMPLETE W DOPPLER/CF WO CONTRAST Routine 08/12/2024 10:30 AM [facility]MAN Coronary artery disease involving miccosukee coronary artery of miccosukee heart without angina pectoris Cardiac pacemaker in situ Nonrheumatic aortic valve stenosis POCT LIPID PANEL Routine 08/02/2024 7:52 AM FLAGMAN Coronary artery disease involving miccosukee coronary artery of miccosukee heart without angina pectoris Mixed hyperlipidemia DEVICE CHECK - REMOTE Routine 06/30/2024 1:21 PM [facility]MAN Complete heart block (HCC) Sinus node dysfunction (HCC) from Last 3 Months Results * TRANSTHORACIC ECHO (TTE) COMPLETE W DOPPLER/CF WO CONTRAST (08/12/2024 10:30 AM FLAGMAN) LV EF 45 % CONS SCIMAGE Anatomical Region Laterality Modality Ultrasound 08/12/2024 9:54 AM FLAGMAN Narrative 08/12/2024 12:53 PM [facility] Medical Group Cardiology [address], [address], [place] [address] P:[phone] P:[phone] Echocardiographic Report Patient Name: GASTON PAT : 1945 Study Date: 08/12/2024 9:54:08 AM Gender: M Tech: SW Location: [facility] Ref Provider: BECKY GILMAN Height(Cm): 173 BSA: 2.19 Weight(Kg): 99.8 Heart Rate: 69 BP: 138 / 88 Quality: Good Order Provider: BECKY GILMAN PROCEDURES: Echocardiographic Report: Transthoracic echocardiogram with complete 2D, M-Mode, and color Doppler examination. With Strain Analysis. INDICATIONS: Coronary Artery Disease and Z95.0 Presence of cardiac pacemaker. MEASUREMENTS: 2D/MM Value Range Doppler Value Range EF Mod BP 48 % [ 52 - 72 ] MAGED Vmax 2.11 cm2 [ 2.00 - 4.00 ] EF Teich MM 47 % [ 52 - 72 ] AV Mean PG 5 mmHg Estimated EF 45 % AV Peak Ish 1.52 m/s [ 1.00 - 1.70 ] LVIDd 2D 5.05 cm [ 4.20 - 5.80 ] AV Peak PG 9 mmHg LVIDd MM 6.03 cm [ 4.20 - 5.80 ] AV VTI 29.97 cm LVIDs 2D 3.68 cm [ 2.50 - 4.00 ] LVOT Diam 1.98 cm [ 1.70 - 2.10 ] LVIDs MM 4.57 cm [ 2.50 - 4.00 ] LVOT Peak Ish 0.92 m/s [ 0.70 - 1.10 ] LVPWd 2D 1.25 cm [ 0.60 - 1.00 ] LVOT VTI 18.76 cm LVPWd MM 0.94 cm [ 0.60 - 1.00 ] MV E Peak Ish 0.64 m/s [ 0.60 - 1.30 ] IVSd 2D 1.14 cm [ 0.60 - 1.00 ] MV A Peak Ish 1.15 m/s [ 1.00 - 1.20 ] IVSd MM 1.10 cm [ 0.60 - 1.00 ] MV Decel Time 199 msec [ 104 - 258 ] LA Dimension MM 3.28 cm [ 3.00 - 4.00 ] PV Peak Ish 1.14 m/s [ 0.40 - 0.80 ] AoR Diam MM 3.96 cm [ 3.10 - 3.70 ] TR Peak Ish 2.56 m/s [ 1.00 - 2.80 ] LA Volume Index 21 cc/m2 [ 16 - 34 ] TR Peak PG 26 mmHg ACS MM 1.78 cm [ 1.50 - 2.60 ] E` 0.03 m/s E/E` 19 2D/MM Value Range Doppler Value Range - FINDINGS: Interpretation Site: Exam was interpreted at [facility]. Left Ventricle: Normal left ventricular size. Moderate concentric left ventricular hypertrophy. Mild global left ventricular systolic dysfunction. Paradoxical septal motion consistent with IVCD or bundle branch block. Impaired diastolic relaxation Grade I. Ejection fraction is measured at 48 %. Ejection Fraction is visually estimated to be 45 %. Global Longitudinal Strain is -12 %. These segments of the LV are akinetic: apical segment. Right Ventricle: Normal right ventricular size. Left Atrium: There is mild enlargement of left atrium. Right Atrium: The right atrium is normal in size. Atrial Septum: Aneurysmal atrial septum. Thin and hypermobile atrial septum. Mitral Valve: Normal appearance of the mitral valve. Trivial regurgitation of the mitral valve. Aortic Valve: Aortic cusps appear mildly sclerotic. Tricuspid Valve: Normal appearance of the tricuspid valve. Estimated peak RVSP is 34 mmHg. Mild tricuspid regurgitation. Pulmonic Valve: Normal appearance of the pulmonic valve. Mild pulmonic regurgitation. Pericardium: Normal pericardium with no significant pericardial effusion. Aorta: Normal aortic root. IVC: The IVC is not well visualized. Pulmonary Artery: Normal pulmonary artery size. CONCLUSIONS: Normal left ventricular size. Moderate concentric left ventricular hypertrophy. Mild global left ventricular systolic dysfunction. Paradoxical septal motion consistent with IVCD or bundle branch block. Impaired diastolic relaxation Grade I. Ejection fraction is measured at 48 %. Ejection Fraction is visually estimated to be 45 %. Global Longitudinal Strain is -12 %. These segments of the LV are akinetic: apical segment. There is mild enlargement of left atrium. Normal appearance of the mitral valve. Trivial regurgitation of the mitral valve. Aortic cusps appear mildly sclerotic. Electronically Signed By: Hari Oro MD, [facility] 08/12/2024 12:52:20 PM [facility] Procedure Note Hari Oro MD - 08/12/2024 [facility] Medical Group Cardiology [address], [address], [place] [address] P:[phone] P:[phone] Echocardiographic Report Patient Name: GASTON PAT : 1945 Study Date: 08/12/2024 9:54:08 AM Gender: M Tech: Location: [facility] Ref Provider: BECKY GILMAN Height(Cm): 173 BSA: 2.19 Weight(Kg): 99.8 Heart Rate: 69 BP: 138 / 88 Quality: Good Order Provider: BECKY GILMAN PROCEDURES: Echocardiographic Report: Transthoracic echocardiogram with complete 2D, M-Mode, and color Dopplerexamination. With Strain Analysis. INDICATIONS: Coronary Artery Disease and Z95.0 Presence of cardiac pacemaker. MEASUREMENTS: 2D/MM Value Range Doppler ValueRange EF Mod BP 48 % [ 52 - 72 ] MAGED Vmax 2.11cm2 [ 2.00 - 4.00 ] EF Teich MM 47 % [ 52 - 72 ] AV Mean PG 5mmHg Estimated EF 45 % AV Peak Ish 1.52m/s [ 1.00 - 1.70 ] LVIDd 2D 5.05 cm [ 4.20 - 5.80 ] AV Peak PG 9mmHg LVIDd MM 6.03 cm [ 4.20 - 5.80 ] AV VTI 29.97cm LVIDs 2D 3.68 cm [ 2.50 - 4.00 ] LVOT Diam 1.98 cm[ 1.70 - 2.10 ] LVIDs MM 4.57 cm [ 2.50 - 4.00 ] LVOT Peak Ish 0.92m/s [ 0.70 - 1.10 ] LVPWd 2D 1.25 cm [ 0.60 - 1.00 ] LVOT VTI 18.76cm LVPWd MM 0.94 cm [ 0.60 - 1.00 ] MV E Peak Ish 0.64m/s [ 0.60 - 1.30 ] IVSd 2D 1.14 cm [ 0.60 - 1.00 ] MV A Peak Ish 1.15m/s [ 1.00 - 1.20 ] IVSd MM 1.10 cm [ 0.60 - 1.00 ] MV Decel Time 199msec [ 104 - 258 ] LA Dimension MM 3.28 cm [ 3.00 - 4.00 ] PV Peak Ish 1.14m/s [ 0.40 - 0.80 ] AoR Diam MM 3.96 cm [ 3.10 - 3.70 ] TR Peak Ish 2.56m/s [ 1.00 - 2.80 ] LA Volume Index 21 cc/m2 [ 16 - 34 ] TR Peak PG 26mmHg ACS MM 1.78 cm [ 1.50 - 2.60 ] E` 0.03m/s E/E` 19 2D/MM Value Range Doppler ValueRange - FINDINGS: Interpretation Site: Exam was interpreted at [facility]. Left Ventricle: Normal left ventricular size. Moderate concentric left ventricularhypertrophy. Mild global left ventricular systolic dysfunction. Paradoxical septal motionconsistent with IVCD or bundle branch block. Impaired diastolic relaxation Grade I.Ejection fraction is measured at 48 %. Ejection Fraction is visually estimated to be 45 %.Global Longitudinal Strain is -12 %. These segments of the LV are akinetic: apical segment. Right Ventricle: Normal right ventricular size. Left Atrium: There is mild enlargement of left atrium. Right Atrium: The right atrium is normal in size. Atrial Septum: Aneurysmal atrial septum. Thin and hypermobile atrial septum. Mitral Valve: Normal appearance of the mitral valve. Trivial regurgitation of the mitralvalve. Aortic Valve: Aortic cusps appear mildly sclerotic. Tricuspid Valve: Normal appearance of the tricuspid valve. Estimated peak RVSP is 34 mmHg.Mild tricuspid regurgitation. Pulmonic Valve: Normal appearance of the pulmonic valve. Mild pulmonic regurgitation. Pericardium: Normal pericardium with no significant pericardial effusion. Aorta: Normal aortic root. IVC: The IVC is not well visualized. Pulmonary Artery: Normal pulmonary artery size. CONCLUSIONS: Normal left ventricular size. Moderate concentric left ventricularhypertrophy. Mild global left ventricular systolic dysfunction. Paradoxical septal motionconsistent with IVCD or bundle branch block. Impaired diastolic relaxation Grade I.Ejection fraction is measured at 48 %. Ejection Fraction is visually estimated to be 45 %.Global Longitudinal Strain is -12 %. These segments of the LV are akinetic: apical segment. There is mild enlargement of left atrium. Normal appearance of the mitral valve. Trivial regurgitation of the mitralvalve. Aortic cusps appear mildly sclerotic. Electronically Signed By: Hari Oro MD, [facility] 08/12/2024 12:52:20 PM [facility] Becky Gilman MD CV ECHO PROCEDURES Final Result * POCT lipid panel (08/02/2024 7:52 AM [facility]MAN) Cholesterol, POC 119 mg/dL HDL, POC 42 mg/dL Triglycerides, POC 85 mg/dL LDL Cholesterol POC 61 mg/dL Chol/HDL Ratio, POC 2.9 Non-HDL Cholesterol, POC 78 mg/dL Cholesterol Total, POC 119 mg/dL Capillary blood 08/02/2024 7 :52 AM [facility] Becky Gilman MD POINT OF CARE TEST ORDERA BLES Final Result * DEVICE CHECK - REMOTE (06/30/2024 1:21 PM [facility]MAN) Anatomical Region Laterality Modality Other Narrative 08/04/2024 8:48 AM [facility] Biotronik Edora Dual Pacemaker. Dx; CHB. DOI 12/29/2022-Fleissner. Hernandez. Biotronik remote monitoring. Routine DDD Pacemaker Remote. Transmission attached. Battery status: OK, 85% remaining battery life to DAVIAN. Stable lead impedances, pacing and sensing thresholds. Presenting rhythm: A sensed/V paced AP-33%, HOUSEHOLD APPLIANCES SERVICE TECHNICIAN-94% No AT/AF episodes noted. No Ventricular high rate episodes detected. Medications: ASA 81 mg, amlodipine 10 mg, losartan 50 mg See scanned report. Office pacemaker follow up: 06/07/25 Biotronik remote f/u 09/20/24. Manolo Thomas RN Becky Gilman MD [facility] Final Result from Last 3 Months Insurance AETNA MEDICARE [facility] MEDICARE Care Teams Sales Developer Relationship Specialty Start Date End Date Remi Hernandez MD [address] [place] [address] PCP - General 09/26/16
--- OUTSIDE RECORDS SUMMARY | 2024-09-01 00:09 | XMS_ITS | Referral Summary ---
Author Organization [facility] [place] [address] Address [address] [place] [address] Care Team Providers Care Airline Managerial Supervisor Name Role Phone Remi Hernandez MD Primary Care Provider [phone]- [phone] Encounters Date Type Department Care Team Description 08/26/2024 Telephone [facility] Cardiology [address] [place] [address] [address] [place] [phone] Becky Gilman MD Prior Auth 08/17/2024 Telephone [facility] Cardiology [address] [place] [address] [address] [place] [phone] Becky Gilman MD 08/17/2024 Results Follow-Up [facility]iology [address] [place] [address] [address] [place] [phone] Becky Gilman MD 08/12/2024 10:15 AM LITHOGRAPH PRESS FEEDER Ancillary Procedure [facility] Cardiology at [address] [place] [phone] Coronary artery disease involving northway coronary artery of northway heart without angina pectoris; Cardiac pacemaker in situ; Nonrheumatic aortic valve stenosis 08/02/2024 8:00 AM LITHOGRAPH PRESS FEEDER Office Visit [facility] Cardiology at [address] [place] [phone] Becky Gilman MD Coronary artery disease involving northway coronary artery of northway heart without angina pectoris (Primary Dx); Essential hypertension; Cardiac pacemaker in situ; Mixed hyperlipidemia; Nonrheumatic aortic valve stenosis 07/14/2024 Telephone [facility] Cardiology [address] [place] [phone] Becky Gilman MD Med Refill 06/30/2024 Orders Only [facility]iology [address] [place] [phone] Becky Gilman MD Cardiac pacemaker in situ (Primary Dx); Complete heart block (HCC) 06/14/2024 7:00 AM LITHOGRAPH PRESS FEEDER Ancillary Procedure [facility]iology [address] [place] [phone] Cardiac pacemaker in situ (Primary Dx); Complete heart block (HCC); Sinus node dysfunction (HCC) from Last 3 Months Allergies No known active allergies Medications finasteride [...] mg SL tabletIndicatio ns:Coronary artery disease involving northway coronary artery of northway heart without angina pectoris Place 1 tablet [...] pain 02/10/2017 Coronary artery disease invo lving northway coronary artery of northway heart without angina pectoris 02/10/2017 Essential hypertension 02/10/2017 Chronic fatigue syndrome 04/04/2016 Overview (10/02/2016): Chronic fatigue Muscle pain 10/09/2014 Overview (10/02/2016): Myalgia Resolved Problems Problem Noted Date Diagnosed Date Resolved Date Dyslipidemia 02/10/2017 08/27/2021 Status post coronary artery stent placement 01/31/2016 08/22/2022 Overview (10/03/2016): S/P coronary artery stent placement Social History Tobacco Use Types Packs/Day Years Used Date Smoking Tobacco: Former Smokeless Tobacco: Never Tobacco Cessation:Counseling Given: Not Answered Alcohol Use Standard Drinks/Week Comments Yes 0 (1 standard drink = 0.6 oz pur e alcohol) Sex and Gender Information Value Date Recorded Sex Assigned at Not on file Legal Sex Male 7:12 PM LITHOGRAPH PRESS FEEDER Gender Identity Not on file Sexual Orientation Not on file Last Filed Vital Signs Vital Sign Reading Time Taken Comments Blood Pressure 138/88 08/02/2024 7:57 AM LITHOGRAPH PRESS FEEDER Pulse 66 08/02/2024 7:57 AM LITHOGRAPH PRESS FEEDER Temperature - - Respiratory Rate 12 02/10/2017 2:35 PM CDT Oxygen Saturation 96% 08/02/2024 7:57 AM LITHOGRAPH PRESS FEEDER Inhaled Oxygen Concentration - - Weight 99.8 kg (220 lb) 08/02/2024 7:57 AM LITHOGRAPH PRESS FEEDER Height 172.7 cm (5' 8 ) 08/02/2024 7:57 AM LITHOGRAPH PRESS FEEDER Body Mass Index 33.45 08/02/2024 7:57 AM LITHOGRAPH PRESS FEEDER Plan of Treatment Not on file Procedures Procedure Name Priority Date/Time Associated Diagnosis Comments TRANSTHORACIC ECHO (TTE) COMPLETE W DOPPLER/CF WO CONTRAST Routine 08/12/2024 10:30 AM LITHOGRAPH PRESS FEEDER Coronary artery disease involving northway coronary artery of northway heart without angina pectoris Cardiac pacemaker in situ Nonrheumatic aortic valve stenosis POCT LIPID PANEL Routine 08/02/2024 7:52 AM LITHOGRAPH PRESS FEEDER Coronary artery disease involving northway coronary artery of northway heart without angina pectoris Mixed hyperlipidemia DEVICE CHECK - REMOTE Routine 06/30/2024 1:21 PM LITHOGRAPH PRESS FEEDER Complete heart block (HCC) Sinus node dysfunction (HCC) from Last 3 Months Results * TRANSTHORACIC ECHO (TTE) COMPLETE W DOPPLER/CF WO CONTRAST (08/12/2024 10:30 AM LITHOGRAPH PRESS FEEDER) LV EF 45 % CONS SCIMAGE Anatomical Region Laterality Modality Ultrasound 08/12/2024 9:54 AM LITHOGRAPH PRESS FEEDER Narrative 08/12/2024 12:53 PM LITHOGRAPH PRESS FEEDER [facility] Cardiology [facility][note 3][address], [address], [place] [address] P:[phone] P:[phone] Echocardiographic Report Patient Name: GASTON PAT : 1945 Study Date: 08/12/2024 9:54:08 AM Gender: M Tech: Location: [place] Ref Provider: BECKY GILMAN Height(Cm): 173 BSA: [...] FINDINGS: Interpretation Site: Exam was interpreted at [facility]. Left Ventricle: Normal left ventricular size. Moderate [...] sclerotic. Electronically Signed By: Hari Oro MD, [facility] 08/12/2024 12:52:20 PM LITHOGRAPH PRESS FEEDER Procedure Note Hari Oro MD - 08/12/2024 [facility] Cardiology [address], [address], [place] [address] P:[phone] P:[phone] Echocardiographic Report Patient Name: GASTON PAT : 1945 Study Date: 08/12/2024 9:54:08 AM Gender: M Tech: Location: [place] Ref Provider: BECKY GILMAN Height(Cm): 173 BSA: [...] FINDINGS: Interpretation Site: Exam was interpreted at [facility]. Left Ventricle: Normal left ventricular size. Moderate [...] sclerotic. Electronically Signed By: Hari Oro MD, [facility] 08/12/2024 12:52:20 PM LITHOGRAPH PRESS FEEDER Becky Gilman MD CV ECHO PROCEDURES Final Result * POCT lipid panel (08/02/2024 7:52 AM LITHOGRAPH PRESS FEEDER) Cholesterol, POC 119 mg/dL HDL, POC 42 mg/dL Triglycerides, POC 85 mg/dL LDL Cholesterol POC 61 mg/dL Chol/HDL Ratio, POC 2.9 Non-HDL Cholesterol, POC 78 mg/dL Cholesterol Total, POC 119 mg/dL Capillary blood 08/02/2024 7 :52 AM LITHOGRAPH PRESS FEEDER Becky Gilman MD POINT OF CARE TEST ORDERA BLES Final Result * DEVICE CHECK - REMOTE (06/30/2024 1:21 PM LITHOGRAPH PRESS FEEDER) Anatomical Region Laterality Modality Other Narrative 08/04/2024 8:48 AM LITHOGRAPH PRESS FEEDER Biotronik Edora Dual Pacemaker. Dx; CHB. DOI 12/29/2022-[place]. [employer]. Biotronik remote monitoring. Routine DDD Pacemaker Remote. Transmission attached. Battery status: OK, 85% remaining battery life to DAVIAN. Stable lead impedances, pacing and sensing thresholds. Presenting rhythm: A sensed/V paced AP-33%, INTERNAL COMMUNICATIONS INTERN-94% No AT/AF episodes noted. No Ventricular high rate episodes detected. Medications: ASA 81 mg, amlodipine 10 mg, losartan 50 mg See scanned report. Office pacemaker follow up: 06/07/25 Biotronik remote f/u 09/20/24. Manolo Thomas, RN Becky Gilman MD CV CARDIAC SERVICES PROCE IDRK Final Result from Last 3 Months Insurance [facility] MEDICARE [facility] MEDICARE Care Teams Airline Managerial Supervisor Relationship Specialty Start Date End Date Remi Hernandez MD [address] [place] [address] PCP - General 09/26/16
--- OUTSIDE RECORDS SUMMARY | 2024-09-01 00:09 | XMS_ITS | Encounter Summary ---
Author Organization [facility] Healthcare Address [address] [place] [address] Care Team Providers Care Envelope Machine Adjuster Name Role Phone Remi Hernandez MD Primary Care Provider [phone]- [phone] Encounter Details Date Type Department Care Team (Late st Contact Info) Description 08/17/2024 Results Follow-Up [facility] Cardiology [address] [place] [address] Aric Bennett MD [address] [id number] Social History Tobacco Use Types Packs/Day Years Used Date Smoking Tobacco: Former Smokeless Tobacco: Never Alcohol Use Standard Drinks/Week Comments Yes 0 (1 standard drink = 0.6 oz pur e alcohol) Sex and Gender Information Value Date Recorded Sex Assigned at Not on file 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
[2024-09-01 09:16] LABS: Basophils Absolute Auto 0.1 K/mm3 (0.0-0.1); Basophils Percent Auto 0.9 % (0.2-1.2); Eosinophils Absolute Auto 0.5 K/mm3 (0-0.3); Eosinophils Percent Auto 5.9 % (0-4.4); Hematocrit 45.9 % (42.0-52.0); Hemoglobin 15.6 g/dL (14.0-18.0); Immature Granulocyte Absolute 0.01 K/mm3 (0.00-0.031); Immature Granulocyte Percent A 0.1 % (0-0.5); Lymphocytes Absolute Auto 2.31 K/mm3 (0.9-3.2); Mean Corpuscular Hemoglobin 30.6 pg (26-34); Mean Corpuscular Volume 90.2 fl (80-100); Mean Platelet Volume 9.5 fl (7.4-10.4); Monocytes Absolute Auto 0.8 K/mm3 (0.1-0.6); Monocytes Percent Auto 10.1 % (2.6-8.5); Neutrophils Absolute Auto 4.1 K/mm3 (1.3-6.7); Platelet Count Result 260 k/mm3 (150-375); Red Blood Count 5.09 M/mm3 (4.6-6.20); Red Cell Distribution Width 13.7 % (11.5-14.5); White Blood Count 7.7 K/mm3 (4.5-10.0)
[2024-09-01 09:31] LABS: Anion Gap 13 mmol/L (4-12); Blood Urea Nitrogen 19 mg/dL (9-20); Calcium 10.5 mg/dL (8.4-10.2); Carbon Dioxide 22 mmol/L (22-30); Chloride 109 mmol/L (98-107); Estimated CRCL calculation 67 ml/min; Estimated Glomerular Filt Rate > 60; Glucose 152 mg/dL (65-110); Potassium 3.7 mmol/L (3.4-5.0); Sodium 144 mmol/L (137-145)
--- NOTE | 2024-09-01 10:30 | WPDHPUPDATE1 ---
History and Physical Update Update Date/Time: 09/01/24 10:30 History and Physical has been reviewed, including an updated exam of the patient. There are NO changes in the patient's condition. Risks, benefits, and alternatives have been discussed and questions answered. Patient agrees to proceed with procedure.
--- NOTE | 2024-09-01 10:30 | WPDMODSED ---
Moderate Sedation Note-Pt Data Patient Data Allergies Allergy/AdvReac Type Severity Reaction Status Date / Time No Known Allergies Allergy Verified 09/01/24 09:05 Home Medications ?Medication ?Instructions ?Recorded ?Confirmed ?Type Cardio-Plus 3 tablet PO QAM 12/26/22 08/31/24 History Cataplex C 3 tablet PO QAM 12/26/22 08/31/24 History Cayenne Pepper 345 mg PO QAM 12/26/22 08/31/24 History Cyruta Plus 3 tablet PO QAM 12/26/22 08/31/24 History Organically Bound Minerals 3 tablet PO QAM 12/26/22 08/31/24 History Pneumotrophin Pmg 3 tablet PO QAM 12/26/22 08/31/24 History Soybean Lecithin 2 softgel PO QAM 12/26/22 08/31/24 History amlodipine 10 mg tablet 10 mg PO DAILY 12/26/22 08/31/24 History aspirin 81 mg tablet,delayed 81 mg PO DAILY 12/26/22 08/31/24 History release coQ10 (ubiquinol) 100 mg capsule 200 mg PO HS 12/26/22 08/31/24 History ezetimibe 10 mg tablet 10 mg PO DAILY 12/26/22 08/31/24 History finasteride 5 mg tablet 5 mg PO HS 12/26/22 08/31/24 History latanoprost 0.005 % eye drops 1 drp EACH EYE HS 12/26/22 08/31/24 History magnesium citrate 100 mg tablet 600 mg PO HS 12/26/22 08/31/24 History rosuvastatin 40 mg tablet 40 mg PO HS 12/26/22 08/31/24 History losartan 50 mg tablet (Cozaar) 50 mg PO QHS #30 tabs 12/30/22 08/31/24 Rx Sedation/Anesthesia: No previous sedation/anesthesia problems (including family history). [facility] Past Medical History Medical History BPH (benign prostatic hyperplasia) CAD (coronary artery disease) Hyperlipidemia Hypertension Macular degeneration Surgical History Surgical History History of cardiac catheterization History of colonoscopy History of tonsillectomy and adenoidectomy Family History Family History Father DVT (deep venous thrombosis) Mother CKD (chronic kidney disease) Cerebrovascular accident Lung cancer Sibling Acute myocardial infarction Social History Social History Social History: The patient is and lives with his . The patient has 2 children. 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 The patient stated that he smoked cigarettes while he was in the . Code status full code Smoking packs per day: 1 Smoking cigarettes per day: 20.0 Years smoked: 10 Smoking pack-years: 10.00 Smoking status: Former smoker Tobacco type: cigarettes Alcohol intake: never Substance use: never Last use: 06/1971 Lack of Transportation: No Lack of Food: Never True Current Housing: I Have Housing Concerned About Future Housing: No Difficulty Paying Gas/Electric Bills: No Difficulty Paying for Meds: No Currently Unemployed: No Education: Master's Degree or Higher Difficulty w/ Childcare or Family Care: No Living arrangements: with family Spiritual care concerns: No Mod Sed Physical Exam Physical Exam Pre Procedural Exam: Normal: Heart Rate and Heart Rhythm Hours since solid foods: 12 Hours since liquid intake: 12 Mallampati Classification: class III Internal Medicine - PN: Obj Da Vital Signs Vital Signs: Vital Signs - 24 hr 09/01/24 09:08 Temperature 36.4 C Pulse Rate 69 Respiratory Rate 16 Blood Pressure 151/75 H Pulse Oximetry 95 Oxygen Delivery Room Air Labs 09/01/24 09:11 09/01/24 09:11 Labs: Laboratory Results - last 24 hr 09/01/24 09:11 WBC 7.7 RBC 5.09 Hgb 15.6 Hct 45.9 MCV 90.2 MCH 30.6 MCHC 34.0 RDW 13.7 Plt Count 260 MPV 9.5 Immature Gran % (Auto) 0.1 Neut % (Auto) 53.0 Lymph % (Auto) 30.0 [place] % (Auto) 10.1 H Eos % (Auto) 5.9 H Baso % (Auto) 0.9 Lymph # (Auto) 2.31 [place] # (Auto) 0.8 H Eos # (Auto) 0.5 H Baso # (Auto) 0.1 Abs Immat Gran (auto) 0.01 Absolute Neuts (auto) 4.1 Absolute Nucleated RBC 0.000 Nucleated RBC % 0.0 Sodium 144 Potassium 3.7 Chloride 109 H Carbon Dioxide 22 Anion Gap 13 H BUN 19 Creatinine 0.90 Estim Creat Clear Calc 67 Estimated GFR > 60 Glucose 152 H Calcium 10.5 H ASA Classification/Sedation ASA Classification/Sedation ASA Class: III Emergent: No Risks: Risks, benefits and alternatives explained and patient/family accepted plan for sedation. Patient re-evaluated immediately prior to sedation.
--- NOTE | 2024-09-01 11:06 | WPDCARDPROC ---
Cardiac Cath Procedure Note Date of procedure:: 09/01/24 Performing physician:: CATHETERIZATION LABORATORY REPORT Procedure Date: 09/01/2024 Referring Physician: Dr. Bennett Anesthesia: Versed and Fentanyl were ordered and given in my presence at 1047, procedure ended at 1101. Supervision of nurse, Norma Cardenas monitored moderate sedation with 2mg Versed and 100mcg Fentanyl was provided for 14 minutes. Pre-op Diagnosis: Cardiomyopathy Post-op Diagnosis: Cardiomyopathy Procedure(s): Left heart catheterization with coronary angiography Access Site: Right radial artery Brief History and Clinical Indications: 71-year-old man with known history of severe obstructive CAD presents with worsening cardiomyopathy finding his coronary anatomy. All risks, benefits and alternatives to left heart catheterization with or without percutaneous coronary intervention was discussed at length with the patient. Risk of complications including but not limited to bleeding, infection, arrhythmia, stroke, worsening kidney function, blood loss, groin hematoma, limb loss, emergency coronary artery bypass grafting, and even were discussed with the patient and all questions were answered. The patient understood and wished to proceed. Time out called, patient name, date of , medical record number, allergies, procedure performed, identify Photographic Lithographer, patient and staff member concurred with accurate data, procedure carried on. Findings: LEFT HEART CATHETERIZATION FINDINGS: 1. Left main: The left main coronary artery is widely patent without any significant obstructive disease. 2. Left anterior descending: The LAD gives off 1 main diagonal branch. The proximal to mid LAD has a long diffuse 70% stenosis and the distal LAD has a 70-80% stenosis. The 1st major diagonal branch has 80-90% ostial and proximal stenosis involving the area of bifurcation where the diagonal splits into a superior and inferior branch both of which supply a moderate territory. The inferior branch vessel is aneurysmal and tortuous at the ostium. 3. Left circumflex: The left circumflex artery is a large codominant vessel that provides several OM branches prior to giving off a small left PDA. The left circumflex has 10-20% diffuse stenosis in its proximal and distal body. The OM1 branch is a large vessel with 95% ostial stenosis. OM2 branch is a small-caliber vessel with a long segment of subtotal occlusion. The left circumflex also gives off several small-caliber left posterior lateral branches. 4. Right coronary artery: The RCA is large co-dominant vessel that is chronically occluded in its proximal body. 5. Left ventricle: A. End-diastolic pressure 15 mmHg. B. LV gram showed overall preserved left ventricular ejection fraction however the apex is mildly hypokinetic. The aortic arch is calcified. C. No significant gradient across aortic valve on catheter pullback. 6. Opening AO pressure 113/64 and closing AO pressure 116/65 Description of Procedure: Informed consent signed and placed in the chart. Patient transferred to laborer prestressed concrete room. Prepped and draped in usual sterile fashion. 2% lidocaine injected subcutaneously in right wrist area. 22-gauge venipuncture catheter used to access the right radial artery with the Seldinger technique. 6-FR slender sheath placed in right radial artery. Nitroglycerin 200mcg, Verapamil 2.5mg, and Heparin 5000U was given intraarterial through the sheath. J wire advanced under fluoroscopy 5F TIG diagnostic catheter engaged Left Main Coronary Artery. 5F TIG diagnostic catheter engaged Right Coronary Artery Multiple orthogonal angiogram obtained and reviewed 5F Pigtail diagnostic catheter crossed aortic valve to obtain LVEDP, LV angiogram deferred. Hemostasis was achieved by application of TR band. Assessment: Multivessel obstructive CAD Post Operative Condition: Stable No significant blood loss Disposition: Home Plan: Continue aggressive medical therapy and risk factor modification. Consider coronary artery bypass grafting. It is also reasonable to consider cardiac MRI to better delineate left ventricular systolic function and to assess for viability. Given elevated syntax score, he is not a good candidate for PCI alone should revascularization be pursued. Myn[facility] Interventional Cardiology
== END 2024-09-01 14:20 | disposition home or self-care (01) ==
PROVIDERS: PCP Family Medicine; Visit Provider Internal Medicine
PROC: 4A023N7 Measurement of Cardiac Sampling and Pressure, Left Heart, Percutaneous Approach (ICD-10-PCS; CPT 93452; principal; 2024-09-01 10:00)
DX: I42.9 Cardiomyopathy, unspecified (principal); I25.10 Atherosclerotic heart disease of native coronary artery without angina pectoris; Z87.891 Personal history of nicotine dependence
CPT/HCPCS: 36415; 80048; 85025; 93458; C1769; C1887; C1894; J1644; J2003; J2250; J2305; J3010; J7040

== ENCOUNTER 2025-04-13 08:45 | Outpatient (RCR) | payer MEDICARE, SELFPAY ==
[2025-01-17 15:40] VITALS: PULSE 89
== END 2025-04-13 10:28 | disposition home or self-care (01) ==
LOC: ANHCPREHAB 08:45
PROVIDERS: PCP Family Medicine; Visit Provider Internal Medicine Cardiovascular Disease
DX: Z95.1 Presence of aortocoronary bypass graft (principal)
CPT/HCPCS: 93798